=== PATIENT | male | born 1945 | race Caucasian/White ===

== ENCOUNTER 2025-01-09 20:15 | Outpatient (BNV) | payer MEDICARE, SELFPAY | END 2025-01-11 16:57 | PROVIDERS: Admitting Provider Psychiatry & Neurology Psychiatry; PCP Student in an Organized Health Care Education/Training Program; Visit Provider Radiology Diagnostic Radiology | DX: E04.2 Nontoxic multinodular goiter (principal) | CPT/HCPCS: 76536 ==

== ENCOUNTER 2025-01-09 20:15 | Inpatient (IN) | payer MEDICARE, SELFPAY ==
--- NOTE | ~2025-01-09 | US_ITS ---
EXAMINATION: US THYROID HISTORY: Question throat mass, thyroid mass TECHNIQUE: Real-time grayscale ultrasound imaging was performed and images were reviewed. COMPARISON: There are no prior studies available for comparison. FINDINGS: SIZE: The right thyroid lobe measures 4.1 x 1.7 x 1.3 cm. The left thyroid lobe measures 3.7 x 1.3 x 1.3 cm. The isthmus measures 3 mm. FLOW: Flow to the gland is normal. ECHOGENICITY: The echotexture of the gland is homogeneous. NODULES: There are subcentimeter nodules noted on the right as described below: Nodule #: 1 Location: Right lower pole measuring 8 x 5 x 7 mm. Shape: Wider than tall (0 points) Margins: Smooth (0 points) Echotexture: Isoechoic (1 point) Composition: Solid (2 points) Calcifications: None (0 points) Total points: 3 TIRADS: TR3: Mildly suspicious. Nodule #: 2 Location: Right lower pole measuring 4 x 5 x 5 mm. Shape: Wider than tall (0 points) Margins: Smooth (0 points) Echotexture: Isoechoic (1 point) Composition: Solid (2 points) Calcifications: None (0 points) Total points: 3 TIRADS: TR3: Mildly suspicious. US/US thyroid IMPRESSION: Subcentimeter right thyroid nodules as described. According to ACR TI-RADS guidelines, no further follow-up is required. ACR TI-RADS Guidelines TR1 (0 points): Benign. No follow-up or biopsy required TR2 (2 points): Not Suspicious. No biopsy or follow up indicated TR3 (3 points): Mildly Suspicious. FNA if >= 2.5 cm, Follow if >= 1.5 cm TR4 (4-6 points): Moderately Suspicious. FNA if >= 1.5 cm, Follow if >= 1.0 cm TR5 (>=7 points): Highly Suspicious. FNA if >= 1.0 cm, Follow if >= 0.5 cm Electronically signed by: Alan Allen MD 01/14/2025 07:12 AM [facility]
--- OUTSIDE RECORDS SUMMARY | 2025-01-09 20:25 | XMS_ITS | Encounter Summary ---
Author Organization [facility] Address [address] [facility] [address] [place] [address] Care Team Providers Care Exhibit Artist Name Role Phone José Miguel Gutierrez MD Primary Care Provider [phone] José Miguel Gutierrez MD Unavailable Rupert Ram MD Unavailable [phone] Encounter Details Date Type Department Care Team (Late st Contact Info) Description 12/21/2024 External Contact EXT REF LAB [address] [address] Tab Burns MD [address] [place] [address] Social History Tobacco Use Types Packs/Day Years Used Date Smoking Tobacco: Never Smokeless Tobacco: Never Alcohol Use Standard Drinks/Week Comments Not Currently 0 (1 standard drink = 0.6 oz pur e alcohol) Sex and Gender Information Value Date Recorded Sex Assigned at Not on file Legal Sex Male 5:53 AM EST Gender Identity Not on file Sexual Orientation Not on file documented as of this encounter Procedure Notes * Quique Ruiz MD - 12/21/2024 1:06 PM EDT Non-Invasive Vascular Report EMR [address] [address] Date and Time: 12/21/2024 11:04:00 Name: SABA MADRID : 1945 Referring Provider: SEBASTIEN PIZARRO ABA Diagnosis (PE) Vascular Laboratory Report: Left Lower Extremity Venous Duplex Exam Color duplex scanning of the left lower extremity demonstrated that the common femoral vein, femoral vein, proximal deep femoral vein, popliteal vein (proximal and distal), proximal gastrocnemius veins, peroneal veins, great and small saphenous veins, posterior tibial veins were phasic with respiration, fully compressible (where anatomically possible), did not contain imaged thrombus and augmented normally. Left lower extremity mid popliteal vein was non-fully compressible, contained minimal echogenic thrombus remnants, phasic with respiration and augmented normally. IMPRESSION: Chronic, non-occlusive (minimal remnants) deep venous thrombosis in the left lower extremity. No evidence of superficial venous thrombosis in the left lower extremity. No previous exam for comparison. Electronically Signed On 12/21/24 13:13 EDT Krupa Ruiz Electronically Signed On 12/21/24 13:26 EDT SANTIAGO PIZARRO, QUIQUE Lebron Patient Ordering physician: , Other providers: TAB VIZCAINO ABA SOMERS, VINCENT YUAN, , , documented in this encounter Plan of Treatment Upcoming Encounters Date Type Department Care Team (Late st Contact Info) Description 06/03/2025 2:00 PM EDT Office Visit [address] 2[address] [place] [address] Tab Burns MD [address] [place] [address] [address] [place] [address] documented as of this encounter Visit Diagnoses Not on filedocumented in this encounter Care Teams Exhibit Artist Relationship Specialty Start Date End Date José Miguel Gutierrez MD [address] [facility] [address] [place] [address] PCP - General 04/17/21 José Miguel Gutierrez MD [address] [facility] [address] [place] [address] 04/17/21 Rupert Ram MD [address] [place] [address] [address] [place] [address] Gastroenterology 12/17/24 documented as of this encounter
--- OUTSIDE RECORDS SUMMARY | 2025-01-09 20:26 | XMS_ITS | Encounter Summary ---
Author Organization [facility] Address [address] [facility] [address] [place] [address] Phone Care Team Providers Care Insurance Service Representative Name Role Phone Armando Morrow MD Unavailable Chiara Park MD Primary Care Provider [phone] Chiara Park MD Unavailable Noris Calderon MD Primary Care Provider Anh Ramírez Unavailable [email or web address] Radha Samano MA Unavailable [email or web address] Encounter Details Date Type Department Care Team (Late st Contact Info) Description 08/31/2024 Transcribe Orders [facility] [address] [facility] [address] [place] [address] Chiara Park MD [address] [facility] [place] [address] Social History Tobacco Use Types Packs/Day Years Used Date Smoking Tobacco: Never Smokeless Tobacco: Never Alcohol Use Standard Drinks/Week Comments Not Currently 0 (1 standard drink = 0.6 oz pur e alcohol) Etoh, rarely,socially Education Answer Date Recorded Are you interested in more education? Not on tiara e 07/10/2022 Are you concerned about learning? Not on file 07/10/2022 No 07/10/2022 No 07/10/2022 Food Answer Date Recorded Within the past 6 months we worried whether our food would run out before we got money to buy more. Never True 08/21/2024 Within the past 6 months the food we bought just didn't last and we didn't have enough money to get more. Never True Residential Stability Answer Date Recor ded What is your housing situation today? I have malik sing 08/21/2024 How many times have you move d in the past 12 months? Zero (I did not move) 08/21/2024 Paying for Meds Answer Date Recorded Do you have trouble paying for medicines? No 08/21/2024 Paying Utility Bills Answer Date Record ed Do you have trouble paying your heating or elect ricity bill? No 08/21/2024 Transportation Answer Date Recorded Has the lack of transportati on kept you from medical appointments or from getting medications? No 08/21/2024 Digital Access Answer Date Recorded No 08/21/2024 Yes 08/21/2024 Do you have reliable internet access at home? Ye s 08/21/2024 Do you have a device (e.g., phone, tablet, computer) with a working camera? Yes 08/21/2024 Intimate Partner Violence Answer Date R ecorded Are you denied basic needs s uch as food, clothing, or medical care? No 08/21/2024 In the past 12 months have y ou been in a relationship with a person who hurts, threatens, or tries to control you? No 08/21/2024 Are you denied basic needs s uch as food, clothing, or medical care? No 08/21/2024 In the past 12 months have y ou been in a relationship with a person who hurts, threatens, or tries to control you? No 08/21/2024 Sex and Gender Information Value Date Recorded Sex Assigned at Male 09/19/2024 7:37 PM EDT Legal Sex Male 5:50 PM EST Gender Identity Male 09/19/2024 7:37 PM EDT Sexual Orientation Straight 09/19/2024 7: 37 PM EDT documented as of this encounter Plan of Treatment Upcoming Encounters Date Type Department Care Team (Late st Contact Info) Description 01/25/2025 1:30 PM EST Office Visit [facility] [address] [address] Noirs Calderon MD [address] [address] [email or web address] documented as of this encounter Visit Diagnoses Not on filedocumented in this encounter Additional Health Concerns Assessment Noted Time PHQ-9 Depression Total Score: 4 02/22/20 24 12:10 PM EST PHQ-2 Depression Total Score: 1 02/22/20 24 12:10 PM EST documented as of this encounter Care Teams Insurance Service Representative Relationship Specialty Start Date End Date Chiara Park MD [address] [address] PCP - General Internal Medicine 01/09/24 11/22/24 Noris Calderon MD [address] [address] PCP - General Family Medicine 11/23/24 Armando Morrow MD Dermatology 10/03/18 Chiara Park MD [address] [address] Insurance Assigned Provider 06/17/24 Anh Ramírez [address] [place] [address] [email or web address] PHCM Utilization Management Um Nurse 11/30/24 Radha Irving MA [address] [place] [address] PHCM Community Health Worker 11/30/24 12/04/24 documented as of this encounter Additional Source Comments The information contained in this document represents components of the legal health record. It is not the complete legal health record.[facility]
--- OUTSIDE RECORDS SUMMARY | 2025-01-09 20:26 | XMS_ITS | Encounter Summary ---
Author Organization [facility] Address [address] [address] Phone Care Team Providers Care Dehydrogenation Converter Operator Name Role Phone Armando Morrow MD Unavailable Chiara Park MD Primary Care Provider Chiara Park MD Unavailable Noris Calderon MD Primary Care Provider Anh Ramírez Unavailable [email or web address] Radha Samano MA Unavailable [email or web address] Encounter Details Date Type Department Care Team (Late st Contact Info) Description 08/20/2024 Procedure Pass [facility] Emergency Department, [facility] [address] [place] [address] Social History Tobacco Use Types Packs/Day Years [...] your housing situation today? I have malik velasco 08/21/2024 How many times have you move [...] PM EDT documented as of this encounter Functional Status * Calculated C-SSRS Risk Score (Lifetime/Recent) Answer Date of Assessment Author No Risk Indicated 08/21/2024 1:00 AM EDT Belgica Forte, LESTER * [place] Suicide Severity Rating Scale (Screener/Recent Self-Report) Question Answer Date of Assessment Author 1. Wish to be (Past 1 Month) No 08/21/2024 1:00 AM EDT Belgica Forte RN 2. Non-Specific Active Suicidal Thoughts (Past 1 Month) No 08/21/2024 1:00 AM EDT Belgica Forte RN 6. Suicidal Behavior (Lifetime) No 08/21/2024 1:00 AM EDT Belgica Forte RN documented as of this encounter Plan of Treatment Upcoming Encounters Date Type Department Care Team (Late st Contact Info) Description 01/25/2025 1:30 PM EST Office Visit [facility] [address] [address] Noris Calderon MD [address] [address] [email or web address] documented as of this encounter Visit Diagnoses Not on filedocumented in this encounter Additional Health Concerns Assessment Noted Time PHQ-9 Depression Total Score: 4 02/22/20 24 12:10 PM EST PHQ-2 Depression Total Score: 1 02/22/20 24 12:10 PM EST documented as of this encounter Care Teams Dehydrogenation Converter Operator Relationship Specialty Start Date End Date Chiara Park MD [address] [address] [email or web address] PCP - General Internal Medicine 01/09/24 11/22/24 Noris Calderon MD [address] [address] [email or web address] PCP - General Family Medicine 11/23/24 Armando Morrow MD Dermatology 10/03/18 Chiara Park MD [address] [address] [email or web address] Insurance Assigned Provider 06/17/24 Anh Ramírez [address] [place] [address] [email or web address] PHCM Office Coordinator 11/30/24 Radha Irving MA [address] [place] [address] [email or web address] PHCM Community Health Worker 11/30/24 12/04/24 documented as of this encounter Additional Source Comments The information contained in this document represents components of the legal health record. It is not the complete legal health record.[facility]
--- OUTSIDE RECORDS SUMMARY | 2025-01-09 20:26 | XMS_ITS | Encounter Summary ---
Author Organization [facility] Address [address] [address] Phone Care Team Providers Care Assembly Press Operator Name Role Phone José Miguel Gutierrez MD Primary Care Provid [email or web address] José Miguel Gutierrez MD Unavailable [email or web address] Armando Morrow MD Unavailable [phone] José Miguel Gutierrez MD Unavailable [email or web address] M [email or web address] Chiara Park MD Primary Care Provider [phone] Chiara Park MD Unavailable Noris Calderon MD Primary Care Provider [phone] Anh Ramírez Unavailable [email or web address] Radha Samano MA Unavailable [email or web address] Encounter Details Date Type Department Care Team (Late st Contact Info) Description 05/31/2018 Procedure Pass [facility] Imaging - MRI, Main [place] [address] [place], [place] [id number] Social History Tobacco Use Types Packs/Day Years Used Date Smoking Tobacco: Never Smokeless Tobacco: Never Alcohol Use Standard Drinks/Week Comments Not Currently 0 (1 standard drink = 0.6 oz pur e alcohol) Etoh, rarely,socially Sex and Gender Information Value Date Recorded [...] EST Office Visit [facility] [address] [address] Noris Calderon MD [address] [address] [email or web address] documented as of this encounter Visit Diagnoses Not on filedocumented in this encounter Additional Health Concerns Infection Onset Date Last Indicated Resolved Time CoV-Exposed Comment:Recent close contact documented in the COVID-19 PCR/PRO order 11/19/2021 12/01/2021 12/10/2021 1:22 AM E DT CoV-Risk 12/01/2021 12/01/2021 12/12/2021 1:22 AM EDT Assessment Noted Time PHQ-2 Depression Total Score: 0 05/30/19 2:04 PM EDT documented as of this encounter Care Teams Assembly Press Operator Relationship Specialty Start Date End Date José Miguel Gutierrez MD [email or web address] PCP - General 04/06/13 01/08/24 Chiara Park MD [address] [address] [email or web address] PCP - General Internal Medicine 01/09/24 11/22/24 Noris Calderon MD [address] [address] [email or web address] PCP - General Family Medicine 11/23/24 José Miguel Gutierrez MD [email or web address] Insurance Assigned Provider 07/15/18 10/02/18 Armando Morrow MD Dermatology 10/03/18 José Miguel Gutierrez MD [email or web address] Insurance Assigned Provider 06/18/23 06/17/24 Chiara Park MD [address] [place] [phone] Insurance Assigned Provider 06/17/24 Anh Ramírez [address] [place] [address] PHCM Field Artillery Crewmember 11/30/[address] [address] [facility] Community Health Worker 11/30/24 12/04/24 documented as of this encounter Additional Source Comments The information contained in this document represents components of the legal health record. It is not the complete legal health record.[facility]
--- OUTSIDE RECORDS SUMMARY | 2025-01-09 20:26 | XMS_ITS | Encounter Summary ---
Author Organization [facility] Address [address] [address] Phone Care Team Providers Care Unit Manager [employer]ience [employer] Name Role Phone Armando Morrow MD Unavailable [phone] Chiara Park MD Primary Care Provider [phone] Chiara Park MD Unavailable Noris Calderon MD Primary Care Provider Anh Ramírez Unavailable [email or web address] Radha Samano MA Unavailable [email or web address] Encounter Details Date Type Department Care Team (Late st Contact Info) Description 08/09/2024 Procedure Pass [facility]O DEPT [address] [place] [address] Social History Tobacco Use Types Packs/Day Years [...] got money to buy more. Never True 08/09/2024 Within the past 6 months the food we bought just didn't last and we didn't have enough money to get more. Never True Residential Stability Answer Date Recor ded What is your housing situation today? I have malik velasco 08/09/2024 How many times have you move d in the past 12 months? Zero (I did not move) 08/09/2024 Paying for Meds Answer Date Recorded Do you have trouble paying for medicines? No 08/09/2024 Paying Utility Bills Answer Date Record ed Do you have trouble paying your heating or elect ricity bill? No 08/09/2024 Transportation Answer Date Recorded Has the lack of transportati on kept you from medical appointments or from getting medications? No 08/09/2024 Digital Access Answer Date Recorded No 08/09/2024 Yes 08/09/2024 Do you have reliable internet access at home? Ye s 08/09/2024 Do you have a device (e.g., phone, tablet, computer) with a working camera? Yes 08/09/2024 Intimate Partner Violence Answer Date R ecorded Are you denied basic needs s uch as food, clothing, or medical care? No 08/09/2024 In the past 12 months have y ou been in a relationship with a person who hurts, threatens, or tries to control you? No 08/09/2024 Are you denied basic needs s uch as food, clothing, or medical care? No 08/09/2024 In the past 12 months have y ou been in a relationship with a person who hurts, threatens, or tries to control you? No 08/09/2024 Sex and Gender Information Value Date Recorded Sex Assigned at Male 09/19/2024 7:37 PM EDT Legal Sex Male 5:50 PM EST Gender Identity Male 09/19/2024 7:37 PM EDT Sexual Orientation Straight 09/19/2024 7: 37 PM EDT documented as of this encounter Functional Status * Calculated C-SSRS Risk Score (Lifetime/Recent) Answer Date of Assessment Author No Risk Indicated 08/09/2024 5:22 AM EDT Genesis Pond RN * [place] Suicide Severity Rating Scale (Screener/Recent Self-Report) Question Answer Date of Assessment Author 1. Wish to be (Past 1 Month) No 08/09/2024 5:22 AM EDT Genesis Pond RN 2. Non-Specific Active Suicidal Thoughts (Past 1 Month) No 08/09/2024 5:22 AM EDT Genesis Pnod RN 6. Suicidal Behavior (Lifetime) No 08/09/2024 5:22 AM EDT Genesis Pond RN documented as of this encounter Plan of Treatment Upcoming Encounters Date Type Department Care Team (Late st Contact Info) Description 01/25/2025 1:30 PM EST Office Visit [facility] [address] [address] Noris Calderon MD [address] [address] [email or web address] documented as of this encounter Visit Diagnoses Not on filedocumented in this encounter Additional Health Concerns Assessment Noted Time PHQ-9 Depression Total Score: 4 02/22/20 24 12:10 PM EST PHQ-2 Depression Total Score: 1 02/22/20 24 12:10 PM EST documented as of this encounter Care Teams Unit Manager [employer]ience [employer] Relationship Specialty Start Date End Date Chiara Park MD [address] [address] [email or web address] PCP - General Internal Medicine 01/09/24 11/22/24 Noris Calderon MD [address] [address] [email or web address] PCP - General Family Medicine 11/23/24 Armando Morrow MD [email or web address] Dermatology 10/03/18 Chiara Park MD [address] [address] [phone] (work) [email or web address] Insurance Assigned Provider 06/17/24 Anh Ramírez [address] [place] [address] [email or web address] PHCM Rv Body Mechanic 11/30/24 Radha Irving [place] [address] [place] [address] [email or web address] PHCM Community Health Worker 11/30/24 12/04/24 documented as of this encounter Additional Source Comments The information contained in this document represents components of the legal health record. It is not the complete legal health record.[facility]
--- OUTSIDE RECORDS SUMMARY | 2025-01-09 20:26 | XMS_ITS | Clinical Summary ---
Author Organization [facility] ity Address [address] [place] [address] Care Team Providers Care Product Accountant Name Role Phone Unavailable Primary Care Provider Unavailabl e Social History Tobacco Use Types Packs/Day Years Used Date Smoking Tobacco: Never Assessed Sex and Gender Information Value Date Recorded Sex Assigned at Not on file Legal Sex Male 7:02 AM EDT Gender Identity Not on file Sexual Orientation Not on file Plan of Treatment Health Maintenance Due Date Last Done Comments DTaP,Tdap,and Td Vaccines (1 - Tdap) 1963 Pneumococcal Vaccine: 50+ Ye ars (1 of 1 - PCV) 1994 Zoster Vaccines (1 of 2) 1994 RSV Immunization Adult Patie nts (1 - 1-dose 75+ series) 2019 Depression Screening 03/14/2024 COVID-19 Vaccine ( - 2023-2 5 season) 2024 Influenza Vaccine (#1) 2024 HIB Vaccines Aged Out No longer eligi ble based on patient's age to complete this topic HPV Vaccines Aged Out No longer eligi ble based on patient's age to complete this topic Hepatitis A Vaccines Aged Out No long er eligible based on patient's age to complete this topic Hepatitis B Vaccines Aged Out No long er eligible based on patient's age to complete this topic IPV Vaccines Aged Out No longer eligi ble based on patient's age to complete this topic MMR Vaccines Aged Out No longer eligi ble based on patient's age to complete this topic Meningococcal ACWY Vaccine Aged Out N o longer eligible based on patient's age to complete this topic Meningococcal B Vaccine Aged Out No l onger eligible based on patient's age to complete this topic RSV Immunization Patients Un yohan 20 months Aged Out No longer eligible b ased on patient's age to complete this topic Varicella Vaccines Aged Out No longer eligible based on patient's age to complete this topic
--- OUTSIDE RECORDS SUMMARY | 2025-01-09 20:26 | XMS_ITS | Clinical Summary ---
Author Organization [facility] [employer] Address [address] [place] [address] Care Team Providers Care Banker Mason Name Role Phone José Miguel Gutierrez MD Primary Care Provid er Medications No known medications Immunizations Immunization Administration Dates Next Due Moderna Covid-19 Multidose Vial Booster (18+ yea rs) 10/01/2021 Social History Tobacco Use Types Packs/Day Years Used Date Smoking Tobacco: Never Assessed Sex and Gender Information Value Date Recorded Sex Assigned at Not on file Legal Sex Male 3:46 PM EDT Gender Identity Not on file Sexual Orientation Not on file Plan of Treatment Health Maintenance Due Date Last Done Comments Depression: Screening Annual ly using PHQ-2/9 in Adults 18 yrs or above (or HM Modifier)([facility]) 1963 SDOH Screening Reminder: [place] johnson for all adults ([facility]) 1963 Tobacco Smoking Cessation: i n Adults excluding Women: Behavioral and Pharmacotherapy Interventions ([facility]) 1963 Pneumococcal Vaccination Scr eening: Patients 50+ yrs of age ([facility]) (2 of 2 - PCV) 10/08/2017 10/08/2016, 11/25/2010, 01/28/2005 RSV Vaccines (1 - 1-dose 75+ series) 2019 Zoster/Shingles Vaccine Seri es Screening: Adults aged 18+ yrs (or HM Modifiers)([facility]) (2 of 2) 05/26/2021 03/31/2021 DTaP/Tdap/Td Vaccines ([facility]) (2 - Td or Tdap) 06/14/2022 06/14/2012 Flu Vaccination: Ages 65+: Y early High Dose Recommended (or Modifier)([facility]) 10/12/2024 01/02/2019, , 12/14/2016 COVID-19 Vaccine Screening: Initial Series and Booster Status ([facility]) (2024- season) 2024 10/01/2021, 05/21/2020, 04/23/2020 Medical Devices Not on file Insurance MEDICARE Care Teams Banker Mason Relationship Specialty Start Date End Date José Miguel Gutierrez MD [facility] [address] [place] [address] PCP - General Internal Medicine 10/01/21
--- OUTSIDE RECORDS SUMMARY | 2025-01-09 20:26 | XMS_ITS | Encounter Summary ---
Author Organization [facility] Address [address] [facility] [address] [place] [address] Phone Care Team Providers Care Stripper Apprentice Name Role Phone Armando Morrow MD Unavailable [phone] Chiara Park MD Unavailable Noris Calderon MD Primary Care Provider [phone] Anh Ramírez Unavailable [email or web address] Encounter Details Date Type Department Care Team (Late st Contact Info) Description 12/17/2024 Procedure Pass [facility] Imaging - MRI, Main [place] [address] [place] [address] Social History Tobacco Use Types Packs/Day Years Used Date Smoking Tobacco: Never Passive Smoke Exposure: Never Smokeless Tobacco: Never Alcohol Use Standard Drinks/Week Comments Not Currently 0 (1 standard drink = 0.6 oz pur e alcohol) Etoh, rarely,socially Child or Family Care Answer Date Record ed Do you have problems with on e of the following making it difficult for you to work, study, or receive health care? No 11/28/2024 Education Answer Date Recorded Are you interested in more education? Not on tiara e 07/10/2022 Are you concerned about learning? Not on file 07/10/2022 No 07/10/2022 No 07/10/2022 Food Answer Date Recorded Within the past 6 months we worried whether our food would run out before we got money to buy more. Never True 12/14/2024 Within the past 6 months the food we bought just didn't last and we didn't have enough money to get more. Never True Residential Stability Answer Date Recor ded What is your housing situation today? I have malik velasco 12/14/2024 How many times have you move d in the past 12 months? Zero (I did not move) 12/14/2024 Paying for Meds Answer Date Recorded Do you have trouble paying for medicines? No 12/14/2024 Paying Utility Bills Answer Date Record ed Do you have trouble paying your heating or elect ricity bill? No 12/14/2024 Transportation Answer Date Recorded Has the lack of transportati on kept you from medical appointments or from getting medications? No 12/14/2024 Digital Access Answer Date Recorded No 12/14/2024 Yes 12/14/2024 Do you have reliable internet access at home? Ye s 12/14/2024 Do you have a device (e.g., phone, tablet, computer) with a working camera? Yes 12/14/2024 Intimate Partner Violence Answer Date R ecorded Are you denied basic needs s uch as food, clothing, or medical care? No 12/14/2024 In the past 12 months have y ou been in a relationship with a person who hurts, threatens, or tries to control you? No 12/14/2024 Are you denied basic needs s uch as food, clothing, or medical care? No 12/14/2024 In the past 12 months have y ou been in a relationship with a person who hurts, threatens, or tries to control you? No 12/14/2024 Sex and Gender Information Value Date Recorded Sex Assigned at Male 09/19/2024 7:37 PM EDT Legal Sex Male 5:50 PM EST Gender Identity Male 09/19/2024 7:37 PM EDT Sexual Orientation Straight 09/19/2024 7: 37 PM EDT documented as of this encounter Plan of Treatment Upcoming Encounters Date Type Department Care Team ([facility] st Contact Info) Description 01/25/2025 1:30 PM EST Office Visit [facility] [address] [address] Norsi Calderon MD [address] [address] documented as of this encounter Visit Diagnoses Not on filedocumented in this encounter Additional Health Concerns Assessment Noted Time PHQ-9 Depression Total Score: 15 025 2:24 PM EDT PHQ-2 Depression Total Score: 6 11/29/19 25 2:24 PM EDT documented as of this encounter Care Teams Stripper Apprentice Relationship Specialty Start Date End Date Noris Calderon MD 68 [facility] [address] [place] [address] PCP - General Family Medicine 11/23/24 Armando Morrow MD Dermatology 10/03/18 Chiara Park MD [address] [address] Insurance Assigned Provider 06/17/24 Anh Ramírez [address] [place] [email or web address] PHCM Drawer Liner 11/30/24 documented as of this encounter Additional Source Comments The information contained in this document represents components of the legal health record. It is not the complete legal health record.[facility]
--- OUTSIDE RECORDS SUMMARY | 2025-01-09 20:26 | XMS_ITS | Clinical Summary ---
Author Organization [facility] Address [address] [place] [address] Care Team Providers Care Final Application Reviewer Name Role Phone José Miguel Gutierrez MD Primary Care Provider José Miguel Gutierrez MD Unavailable Rupert Ram MD Unavailable [phone] Allergies No known active allergies Medications atorvastatin (Lipitor) 10 mg tablet Take 10 mg by mouth in the morning. Active buPROPion XL (Wellbutrin XL) 300 mg 24 hr tablet Take 300 mg by mouth once daily. Active venlafaxine XR (Effexor-XR) 150 mg 24 hr capsule Take 150 mg by mouth once daily. Active Eliquis 5 mg tablet Take 5 mg by mouth twice daily. Active venlafaxine XR (Effexor-XR) 75 mg 24 hr capsule Take 75 mg by mouth in the morning. Active multivitamin with folic acid 400 mcg tablet tablet Take 1 tablet by mouth once daily. Active amLODIPine (Norvasc) 2.5 mg tablet Take 2.5 mg by mouth in the morning. 5 Active pantoprazole (ProtoNix) 40 mg EC tablet Take 40 mg by mouth in the morning and 40 mg in the evening. 5 01/03/20 25 Discontinu ed(Therapy completed) Encounters Date Type Department Care Team Description 01/02/2025 1:30 PM EDT Office Visit [facility] [address] [place] [address] Tab Burns MD Other acute pulmonary embolism without acute cor pulmonale (Primary Dx) 01/02/2025 Travel 12/26/2024 11:00 AM EDT Office Visit [address] [place] [address] Shirley Wood PA Acute gastric ulcer without hemorrhage or perforation (Primary Dx); Other acute pulmonary embolism, unspecified whether acute cor pulmonale present; Hx of colonic polyp 12/21/2024 [address] [place] [address] Shirley Wood PA 12/21/2024 External Contact [facility]T [facility] [address] [place] [address] Tab Burns MD 11/22/2024 2:30 PM EDT Office Visit [address] [place] [address] Tab Burns MD Other acute pulmonary embolism without acute cor pulmonale (Multi-HCC) (Primary Dx) 11/22/2024 Travel from Last 3 Months Family History Medical History Relation Name Comments Asthma Daughter Asthma Sister Relation Name Status Comments Daughter Alive Sister Social History Tobacco Use Types Packs/Day Years Used Date Smoking Tobacco: Never Smokeless Tobacco: Never Tobacco Cessation:Counseling Given: Not Answered Alcohol Use Standard Drinks/Week Comments Not Currently 0 (1 standard drink = 0.6 oz pur e alcohol) Sex and Gender Information Value Date Recorded Sex Assigned at Not on file Legal Sex Male 5:53 AM EST Gender Identity Not on file Sexual Orientation Not on file Last Filed Vital Signs Vital Sign Reading Time Taken Comments Blood Pressure 124/82 01/02/2025 1:51 PM EDT Pulse 96 01/02/2025 1:51 PM EDT Temperature 36.6 C (97.9 F) 01/02/2025 1:51 PM EDT Respiratory Rate 14 01/02/2025 1:51 PM EDT Oxygen Saturation 99% 01/02/2025 1:51 PM EDT Inhaled Oxygen Concentration - - Weight 72 kg (158 lb 11.7 oz) 01/02/2025 1:51 PM EDT Height 173 cm (5' 8.11 ) 01/02/2025 1:51 PM EDT Body Mass Index 24.06 01/02/2025 1:51 PM EDT Plan of Treatment Upcoming Encounters Date Type Department Care Team (Late st Contact Info) Description 06/03/2025 2:00 PM EDT Office Visit [address] [place] [address] Tab Burns MD [address] [place] [address] [address] [place] [address] Health Maintenance Due Date Last Done Comments Medicare Annual Wellness (AWV) 09/11/1974 Zoster Vaccines (3 of 3) 05/26/2021 03/31/2021, 01/13 DTaP/Tdap/Td Vaccines (2 - Td or Tdap) 06/14/2022 06/14/2012 Depression Screening 03/14/2024 COVID-19 Vaccine (2024- season) 2024 11/23/2023, 01/12/2023, 09/21/2022, Additional history exists Influenza Vaccine (#1) 2024 , 01/05/2022, 11/10/2020, Additional history exists Diabetes Screening 12/15/2025 12/15/2024, 1 , 02/14/2023, Additional history exists Lipid Panel 12/15/2029 12/15/2024, 12/13, 02/14/2023, Additional history exists Pneumococcal Vaccine: 50+ Years Completed 10/08/2016, 10/17/2014, 11/25/2010, Additional history exists Pneumococcal Vaccine: Pediatrics (0 to 5 Years) and At-Risk Patients (6 to 49 Years) Discontinued 10/08/2016, 10/17/2014, 11/25/2010, Additional history exists HIB Vaccines Aged Out No longer eligi [...] patient's age to complete this topic Meningococcal Vaccine Aged Out No tj kim eligible based on patient's age to complete this topic Rotavirus Vaccines Aged Out No longer eligible based on patient's age to complete this topic Insurance MEDICARE PART A AND B [employer] MEDICARE PART A AND B [employer] Care Teams Final Application Reviewer Relationship Specialty Start Date End Date José Miguel Gutierrez MD [address] [facility] [address] [place] [address] PCP - General 04/17/21 José Miguel Gutierrez MD [address] [place] [address] [address] [place] [address] 04/17/21 Rupert Ram MD [address] [place] [address] [address] [place] [address] Gastroenterology 12/17/24
--- OUTSIDE RECORDS SUMMARY | 2025-01-09 20:26 | XMS_ITS | Encounter Summary ---
Author Organization [facility] Address [address] [address] Phone Care Team Providers Care Management Expert Name Role Phone Armando Morrow MD Unavailable Chiara Park MD Primary Care Provider [phone] Chiara Park MD Unavailable Noris Calderon MD Primary Care Provider Anh Ramírez Unavailable [email or web address] Radha Samano MA Unavailable [email or web address] Encounter Details Date Type Department Care Team (Late st Contact Info) Description 08/20/2024 Procedure Pass [facility] Emergency Department, [facility] [address] [place] [address] Social History Tobacco Use Types Packs/Day Years [...] 1:00 AM EDT Belgica Forte, LESTER * Diagonal Suicide Severity Rating Scale (Screener/Recent Self-Report) Question [...] EST Office Visit [facility] [address] [address] Noris Calderon MD [address] [address] [email or web address] documented as of this encounter Visit Diagnoses Not on filedocumented in this encounter Additional Health Concerns Assessment Noted Time PHQ-9 Depression Total Score: 4 02/22/20 24 12:10 PM EST PHQ-2 Depression Total Score: 1 02/22/20 24 12:10 PM EST documented as of this encounter Care Teams Management Expert Relationship Specialty Start Date End Date Chiara Park MD [address] [address] [email or web address] PCP - General Internal Medicine 01/09/24 11/22/24 Noris Calderon MD [address] [address] [email or web address] PCP - General Family Medicine 11/23/24 Armando Morrow MD Dermatology 10/03/18 Chiara Park MD [address] [address] [email or web address] Insurance Assigned Provider 06/17/24 Anh Ramírez [address] [place] [address] [email or web address] PHCM Blast Furnace Helper 11/30/24 Radha Irving MA [address] [place] [address] [email or web address] PHCM Community Health Worker 11/30/24 12/04/24 documented as of this encounter Additional Source Comments The information contained in this document represents components of the legal health record. It is not the complete legal health record.[facility]
--- OUTSIDE RECORDS SUMMARY | 2025-01-09 20:26 | XMS_ITS | Encounter Summary ---
Author Organization [facility] Address [address] [address] Phone Care Team Providers Care Geriatric Nurse Assistant Name Role Phone José Miguel Gutierrez MD Primary Care Provid er [email or web address] José Miguel Gutierrez MD Unavailable [email or web address] Armando Morrow MD Unavailable [phone] José Miguel Gutierrez MD Unavailable [email or web address] Chiara Park MD Primary Care Provider [phone] Chiara Park MD Unavailable Noris Calderon MD Primary Care Provider [phone] Anh Ramírez Unavailable [email or web address] Radha Samano MA Unavailable [email or web address] Encounter Details Date Type Department Care Team (Late st Contact Info) Description 02/16/2016 Procedure Pass [facility]PT [address] [place] [address] [phone] Social History Tobacco Use Types Packs/Day Years Used Date Smoking Tobacco: Never Sex and Gender Information Value Date Recorded [...] EST Office Visit [facility] [address] [id number] Noris Calderon MD [address] [address] [email or web address] documented as of this encounter Visit Diagnoses Not on filedocumented in this encounter Additional Health Concerns Infection Onset Date Last Indicated Resolved Time CoV-Exposed Comment:Recent close contact documented in the COVID-19 PCR/PRO order 11/19/2021 12/01/2021 12/10/2021 1:22 AM E DT CoV-Risk 12/01/2021 12/01/2021 12/12/2021 1:22 AM EDT documented as of this encounter Care Teams Geriatric Nurse Assistant Relationship Specialty Start Date End Date José Miguel Gutierrez MD [email or web address] PCP - General 04/06/13 01/08/24 Chiara Park MD [address] [address] PCP - General Internal Medicine 01/09/24 11/22/24 Noris Calderon MD [address] [address] PCP - General Family Medicine 11/23/24 José Miguel Gutierrez MD [email or web address] Insurance Assigned Provider 07/15/18 10/02/18 Armando Morrow MD Dermatology 10/03/18 José Miguel Gutierrez [email or web address] Insurance Assigned Provider 06/18/23 06/17/24 Chiara Park MD [address] [place] [address] Insurance Assigned Provider 06/17/24 Anh Ramírez [address] [place] [address] [email or web address] PHC Home Designer 11/30/24 Radha Irving [address] [address] [email or web address] PHC Community Health Worker 11/30/24 12/04/24 documented as of this encounter Additional Source Comments The information contained in this document represents components of the legal health record. It is not the complete legal health record.[facility]
--- OUTSIDE RECORDS SUMMARY | 2025-01-09 20:26 | XMS_ITS | Clinical Summary ---
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 venlafaxine (EFFEXOR-XR) 150 MG 24 hr capsule Take 1 capsule (150 mg total) by mouth daily. Dose: 150 MG; Form: Take 1 CAP ER 24H; Route: PO; Frequency: QD; Directions: Not available; Details: Dispense: 30 Capsule(s); Date: 10/17/2014 90 capsule 08/02/19 18 Active b complex vitamins capsule Take 1 capsule by mouth daily. Active atorvastatin (LIPITOR) 10 MG tabletIndicat ions:Hyperlip idemia Take 1 tablet (10 mg total) by mouth daily. 90 tablet 3 12/06/19 25 Active venlafaxine (EFFEXOR-XR) 75 MG 24 hr capsule Take 75 mg by mouth daily. (In addition to 150 mg capsule for a total dose of 225 mg) Active ketoconazole 2 % cream Apply 1 Application topically nightly at bedtime. To forehead and feet Active ELIQUIS 5 mg tablet TAKE 1 TABLET BY MOUTH TWICE A DAY 60 tablet 1 12/18/19 Active amLODIPine (NORVASC) 2.5 MG tablet Take 1 tablet (2.5 mg total) by mouth daily. 30 tablet 12/21/19 Active multivitamin with folic acid 400 mcg tablet Take 1 tablet by mouth daily. Active efinaconazole (JUBLIA) 10 % SolAIndicatio ns:Onychomyco sis Apply 1 each topically daily. APPLY 1 EACH TOPICALLY DAILY. APPLY TO AFFECTED TOENAIL(S) ONCE DAILY FOR 48 WEEKS ENSURE COMPLETE COVERAGE OF THE TOENAIL, THE TOENAIL FOLDS, TOENAIL BED, SURROUNDING SKIN, AND THE UNDERSURFACE OF THE TOENAIL PLATE for 48 weeks. 8 mL 12 12/28/19 25 026 Active buPROPion (WELLBUTRIN XL) 300 MG ER 24 hr tablet Take 300 mg by mouth. Active donepeziL (ARICEPT) 5 MG tablet Take 1 tablet (5 mg total) by mouth nightly at bedtime. 90 tablet 3 01/04/20 Active buPROPion (WELLBUTRIN XL) 150 MG ER 24 hr tablet Take 300 mg by mouth daily. 025 Discontinued(D uplicate order) ELIQUIS 5 mg tablet TAKE 1 TABLET BY MOUTH TWICE A DAY 60 tablet 1 10/17/19 25 025 Discontinued pantoprazole (PROTONIX) 40 MG tablet Take 1 tablet (40 mg total) by mouth 2 (two) times a day. 180 tablet 11/06/19 25 025 Discontinued(N o longer taking) efinaconazole 10 % SolAIndicatio ns:Onychomyco sis Apply 1 each topically daily. Apply to affected toenail(s) once daily for 48 weeks; ensure complete coverage of the toenail, the toenail folds, toenail bed, surrounding skin, and the undersurface of the toenail plate 8 mL 3 12/27/19 25 025 Discontinued Active Problems Patient Care Coordination No te Formatting of this note migh t be different from the original. Pt enrolled to Integrated Care Management Program on 12/16/24 and is followed by Anh Ramírez, Cellular Biologist. Risk Factors/Barriers: Severe depression, hx of PE, CKD3am HLD, OA, ADD, MDD, depressive DO Living Arrangements/Home Environment: Lives alone in co-owned home (bought 20 yrs ago w/ who is now from Pt) Functional Status (ADLs/iADLs): Pt reports independence with ADL's and IADL's Community Supports: Laurel Rodrigez [facility] on 12/25/24 -- in person Family/Social Supports: Pt denies having family support explaining that his was his primary support prior to her leaving him three months ago. Has a 27 yo dtr, but Pt denies any other family supports. The patient also denies that he has many social supports explaining that many of his friends have already . Other Specialty Providers: [facility] and has been seeing them regularly since this incident Dr. Jaime w/ [facility] manages his meds Medication Management: Pt manages his own medications Transportation: Still driving and able to get to and from medical appts Communication Needs (language, visual, hearing impairment): Denies concerns Advanced Care Planning (HCP/MOLST): Per EMR, the patient does not have a Health Care Proxy on file. If not completed while the patient is [psychiatrically admitted, the plan will be for [facility] providers to follow up once the patient has acclimated back to the community. Hospitalizations/Care Transitions: 12/13 - 12/20/24: [facility] for Depression/SI > Home w/ referral to PHP Problem Noted Date Diagnosed Date Change of voice 12/27/2024 Assessment & Plan (12/27/2024 8:29 AM EDT): Pt endorses intermittent episode of voice catching while speaking, recovers fine immediately No other symptoms; denies choking, trouble swallowing, coughing, hoarseness, pain Does not smoke Visible oropharyngeal exam unremarkable - Differential broad, could be spasmodic dysphonia, laryngopharyngeal reflux, vocal cord lesion, early Parkinson's - Patient scheduled with neurology on 01/03/25 due to inpatient MoCA of (decreased from in 2019), pt interested in discussing this with specialist. Given full picture of pt's clinical presentation (tremor, some rigidity, cognitive decline), there is some concern for possible Parkinson's disease. However, other aspects, such as pill-rolling tremor in particular and shuffling gait are absent during this and prior evaluations. May consider OT evaluation. - Can also consider referral to ENT for laryngoscopy. 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 to schedule an appt Stage 3a chronic kidney disease 12/11/2024 Urge incontinence of urine 12/11/2024 Assessment & Plan (12/11/2024 1:01 PM EDT): Expresses strong urge to urinate with subsequent incontinence if he does not immediately get to a bathroom Getting up during the night 3 times to urinate No other abnormal urinary symptoms - Discussed restricting fluid intake 1-2hrs before bedtime - Consider Trial flomax - Prostate exam at follow up Grief 11/29/2024 Assessment & Plan (11/29/2024 8:37 AM EDT): Describes severe depression and grief since left approx 3mo ago Describes recent onset of sudden crying spells Endorsed suicidal ideation on PHQ9 questionnaire. States he is still sleeping and eating well. - SI was discussed further; pt expressed hx same, states these thoughts are chronic. Reports no intent, stating I wouldn't do that and that he is interested in continuing therapy and moving forward with his life as he wants nothing to do with her [his ] anymore. Has been making appointments with providers. - Encouraged to take increased bupropion dose as advised by [facility] provider via phone a few days ago (per his report). Will increase from ER 150mg qd to 300mg qd. - Pt spoke extensively regarding chakras as this is something very meaningful to him. Practiced several breathing exercises, particularly during one of the several crying spells during the visit with a good response and calming effect. - Attempted to secure wellness call/check with [facility] as pt is already established; however, they do not provide this service. Unsuccessful call to [facility] with no response after 2 calls. Urgent referral placed to [facility] [place] additional community resources. Will personally call patient to complete wellness check in. - Follow up in 1 week. Passive suicidal ideations 11/29/2024 Assessment & Plan (11/29/2024 8:42 AM EDT): Endorsed SI on PHQ9 Further history revealed thoughts that are passive in nature without intent or plan. See problem grief for full details Gastric ulcer 08/29/2024 Assessment & Plan (08/29/2024 8:09 PM EDT): Continue pantoprazole Anger 08/20/2024 Chronic kidney disease 08/20/2024 Pulmonary embolism on right 08/20/2024 Assessment & Plan (08/29/2024 1:15 PM EDT): On Eliquis. Provoked from recent hospitalization. Breathing comfortably without any distress for 15 minute conversation. Plan: - Eliquis 5 mg bid - 11/19/2024 at least. - pulm referral. Essential hypertension 08/20/2024 Assessment & Plan (12/27/2024 8:12 AM EDT): Current regimen: amlodipine 2.5mg qd Started during psychiatric admission BP 144/82 - Continue current regimen Symptomatic anemia 08/09/2024 Assessment & Plan (08/09/2024 1:49 PM EDT): Pt presents with 2 episodes of hematemesis 10 days ago and associated lightheadedness, dyspnea, and fatigue. Upon arrival to the ED, he is hemodynamically stable. Hgb 7.3 (priors ~13), Hct 22.9 (priors ~40). He is s/p 2 unit prbc's with improvement in H/H 9.1/28.0. He denies evidence of ongoing bleeding. Given concern for upper GIB, will discuss with GI. - GI consult, appreciate recs - Plan for EGD this afternoon; pt is NPO - IV Protonix 40 mg BID - Maintain 2 large bore IV's - Active type and screen - Trend CBC History of GI bleed 08/01/2024 Assessment & Plan (12/26/2024 4:28 PM EDT): >>ASSESSMENT AND PLAN FOR GASTROINTESTINAL HEMORRHAGE WRITTEN ON 08/01/2024 10:38 AM BY CHIARA CAMPUZANO MD - Fell out of bed. - Threw up blood twice on Tuesday night. - No abdominal pain experienced. - No changes in bowel movements. - Experienced dizziness or lightheadedness. - No headaches or vision changes since the fall. - No weakness or numbness in limbs since the fall. - No changes in balance or coordination since the fall. - No chest pain or shortness of breath since the fall. - No fever or chills since the fall. Plan: - GI referral - CBC, CMP INR - repeat CBC in a week. - if bleeding recur, patient agreed to visit ER immediately. Seborrheic dermatitis 04/05/2024 Assessment & Plan (04/05/2024 1:48 PM EST): - Patient presents with skin redness and peeling on both sides of the face. - Symptoms have been ongoing for several weeks. - No itching or burning sensation associated with the redness and peeling. - No recent changes in skincare products or routines. - Patient has tried lotion and aloe vera. - No changes in diet or new food allergies reported. - Patient has experienced some stress and meditates to help with it. - No new stressors or changes in environment recently. - Patient has noticed changes in skin's condition after sun exposure. - Patient also has a persistent red/brown patch on the chest. - Red/brown patch on chest has been consistent with no changes in size or color. - Patient is unsure but does not think there are any new spots or rashes elsewhere on the body. - No changes in texture or sensitivity of facial skin noted. - Patient reports no new symptoms of swelling or warmth in the affected areas. - Patient has not experienced recent sun exposure or sunburns. Plan: - Nizoral shampoo 2% Seborrheic keratosis 04/05/2024 Assessment & Plan (04/05/2024 1:51 PM EST): Above left nipple Plan: - Bx in 04/2024 Sarcopenia 02/22/2024 Assessment & Plan (02/22/2024 12:26 PM EST): Low muscle volume grossly, report regular weight training though Plan: - KATHERINE in 03/2024 Medication-induced postural tremor 05/27/2023 Aortic atherosclerosis 02/25/2023 Erectile dysfunction 12/10/2022 Adrenal nodule 08/03/2022 Assessment & Plan (02/22/2024 12:25 PM EST): 02/2023 hormonal activity neg 02/2023 CT: adrenal adenoma Plan; - repeat CT in 02/2026 Constipation 10/03/2017 Prediabetes 10/03/2017 Assessment & Plan (02/22/2024 12:24 PM EST): Lab Results Component Value Date GHBA1C 5.8 (H) 01/10/2024 GHBA1C 6.1 (H) 02/14/2023 GHBA1C 5.6 08/16/2022 GHBA1C 6.0 (Abnormally H) 09/01/2021 GHBA1C 6.0 (Abnormally H) 11/10/2020 GHBA1C 5.9 (Abnormally H) 07/01/2020 GHBA1C 5.6 10/09/2019 GHBA1C 6.0 (Abnormally H) 01/24/2019 GHBA1C 5.9 (Abnormally H) 10/04/2018 GHBA1C 5.9 (Abnormally H) 05/29/2018 Plan: - A1c in 05/2024 Assessment & Plan (01/10/2024 12:48 PM EDT): Lab Results Component Value Date GHBA1C 6.1 (H) 02/14/2023 GHBA1C 5.6 08/16/2022 GHBA1C 6.0 (Abnormally H) 09/01/2021 GHBA1C 6.0 (Abnormally H) 11/10/2020 GHBA1C 5.9 (Abnormally H) 07/01/2020 GHBA1C 5.6 10/09/2019 GHBA1C 6.0 (Abnormally H) 01/24/2019 GHBA1C 5.9 (Abnormally H) 10/04/2018 GHBA1C 5.9 (Abnormally H) 05/29/2018 GHBA1C 6.0 (Abnormally H) 10/03/2017 Plan: - A1c today Osteoarthritis 10/08/2016 Helicobacter pylori infection 10/07/2016 ADD (attention deficit disorder) 09/06/2014 Overview (02/18/2015): Attention deficit disorder Allergy 11/24/2010 Overview (05/03/2018): Allergy 2019R1.3 IMO Load Severe depression 11/24/2010 Assessment & Plan (12/27/2024 8:27 AM EDT): Current regimen: effexor 225mg qd, wellbutrin 300mg qd Admitted 12/13-12/20/24 for SI, voluntary Doing well since then, reports he enjoyed the structure Tolerating regimen well - Daily intensive outpatient program starting tomorrow 12/27/24, which he is looking forward to - Continue following with [facility] psychiatry - Continue with [facility] for therapy Assessment & Plan (12/11/2024 12:55 PM EDT): Current regimen: effexor 225mg qd, wellbutrin 300mg qd Started increased doses around Thurs/Fri 11/29- Psychotherapy appt tomorrow evening; sessions have been increased to twice a week Less frequent crying spells - Encouraged to continue attending psychotherapy sessions - Continue current regimen as prescribed - Follow up in 2 weeks Assessment & Plan (08/09/2024 1:49 PM EDT): Continue home Bupropion and Venlafaxine Diverticulosis 11/24/2010 Overview (10/07/2016): Diverticulosis Hyperplastic polyp of intestine 11/24/2010 Overview (10/07/2016): Hyperplastic polyp of intestine Vitamin D deficiency 11/24/2010 Overview (10/07/2016): Vitamin D deficiency Hyperlipidemia 11/17/2010 Overview (10/07/2016): Hyperlipidemia Assessment & Plan (08/09/2024 1:49 PM EDT): Continue home Lipitor Assessment & Plan (01/10/2024 12:48 PM EDT): This SmartLink has been updated to reference the ASCVD 2013 equation and not the 2018 equations. The 10-year ASCVD risk score (Cindy OTTO, et al., 2019) is: 40.6% Values used to calculate the score: Age: 78 years Sex: Male Is Non- : No Diabetic: No Tobacco smoker: No Systolic Blood Pressure: 158 mmHg Is BP treated: No HDL Cholesterol: 46 mg/dL Total Cholesterol: 155 mg/dL Lab Results Component Value Date LDLCAL 68 02/14/2023 LDLCAL 73 08/16/2022 LDLCAL 65 09/01/2021 LDLCAL 54 11/10/2020 Plan: - repeat lipid panel today Sleep apnea 03/28/2009 Overview (10/07/2016): Sleep apnea Assessment & Plan (08/09/2024 1:49 PM EDT): - CPAP, appreciate RT Spinal stenosis 03/28/2009 Overview (10/07/2016): Spinal stenosis Resolved Problems Problem Noted Date Diagnosed Date Resolved Date Depressive disorder 12/14/2024 12/27/19 25 Upper abdominal pain 08/20/2024 025 Serum lipase elevation 08/20/202412/26 Bruising 01/10/2024 12/26/2024 Assessment & Plan (02/22/2024 12:24 PM EST): resolved Assessment & Plan (01/10/2024 12:47 PM EDT): Onset: 3-4 days ago Left arm Denies injury history 5-6 cm Plan: - CBC, LFT, INR - reval in 2 weeks Encounters * This document contains information received from the source organization and may not represent a complete record from that organization. Date Type Department Care Team Description 01/03/2025 2:40 PM EDT Office Visit [facility] [address] [facility] [address], [address] [place] [address] Skylar Epps MD, MBBS Mild cognitive impairment (Primary Dx) 12/26/2024 2:00 PM EDT Office Visit [address] [phone] Noris Calderon MD Onychomycosis (Primary Dx); Actinic keratosis of right cheek; Severe depression; Essential hypertension; Change of voice 12/26/[address] [address] Noris Calderon MD Med Change Request 12/25/2024 Patient Outreach [address] [phone] Radha Irving MA Care Coordination (CHW outreach - finances, housing) 12/25/2024 Patient Outreach [address] [address] Anh Ramírez iCMP Care Plan Update (ICPM ICMP Plan of Care pulled forward manually -d/t MGB / EPIC Update) 12/24/[address] [phone] Carole Brenner MA Post Discharge Follow Up Call (Completed ) 12/24/2024 Patient Outreach [address] [phone] Anh Ramírez Post Discharge Follow Up Call (Completed ) 12/21/2024 Patient Outreach [address] [phone] Henrietta Fong Post Discharge Follow Up Call (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 Primary [address] [address] 12/17/2024 Procedure Pass [facility] - MRI, [address] [place] [place] [address] 12/16/2024 Patient Outreach [address] [phone] Anh Ramírez Program Enrollment ([facility]) 12/16/2024 Refill [facility] [address] [address] Chiara Campuzano MD Medication Refill 12/14/2024 Patient Outreach [address] [address] Anh Ramírez Post Discharge Follow Up Call 12/10/[address] [facility] Primary [address] [phone] 12/05/2024 1:00 PM EDT Office Visit [facility] [address] [place] [address] Noris Calderon MD Medicare annual wellness visit, initial (Primary Dx); Hyperlipidemia; Screening for prostate cancer; Stage 3a chronic kidney disease; Severe depression; Urge incontinence of urine 12/04/2024 Patient Outreach [address] [phone] Anh Ramírez [facility] 12/03/2024 Telephone [facility] [address] [place] [address] Noris Calderon MD Missed call 11/29/2024 Telephone [facility] [address] [place] [phone] Noris Calderon MD 11/28/2024 1:00 PM EDT Office Visit [facility] [address] [place] [phone] Noris Calderon MD Grief (Primary Dx); Severe depression; Passive suicidal ideations 11/05/2024 Orders Only Office of Dr. Jesus Campuzano [address] [phone] Chiara Campuzano MD 10/18/[address] Jesus Campuzano [address] [phone] Jairo Haas MA 10/16/[address] Jesus Campuzano [address] [phone] Cris Rodriguez Medication Refill 10/16/2024 Refill [facility] [address] [facility] [address] [place] [address] Chiara Campuzano MD Medication Refill from Last 3 Months Immunizations Immunization Administration Dates Next Due COVID-19 (Pre-01/03) Moderna Vaccine, mRNA, PF 05/21/2020,04/23/2020 INFLUENZA, SPLIT VIRUS, TRIVALENT PF 12/13/2011 INFLUENZA, SPLIT VIRUS, TRIV ALENT W/ PRESERVATIVE IM 12/30/2015,10/17/2014,01/21/2014,12/11 Influenza High-Dose Quadriva lent Preservative Free IM 01/05/2022,11/10/2020,01/02/2020 Influenza High-Dose Trivalen t Preservative Free IM 12/20/2024(Deferred: Contraindication),12/06/2023, 9,11/28/2017,12/14/2016 Influenza, Unspecified Formulation 11/17,01/01/2010,12/19/2008,01/03 Pneumococcal conjugate PCV13 10/17/2014 Pneumococcal polysaccharide PPSV23 10/08/2016,,01/28/2005 RSV Vaccine (monovalent, adjuvanted) 02/22/2023 Tdap 06/14/2012 Zoster live 02/04/2009 Zoster recombinant 03/31/2021 Family History Medical History Relation Comments Melanoma Father Malignant melano ma Uncoded Family History Father Age relat ed macular degeneration; Legally blind while living. Was only seeing out of one eye. Coronary artery disease Mother Coronary Artery Disease Diabetes Mother Diabetes Mellitu s Uncoded Family History Mother Age relat ed macular degeneration; Legally blind while living. Was diagnosed in late 80's Relation Status Comments Father (Age 103) Father, age 103, skin cancer (melanoma on back). Mother (Age 93) Mother, a ge 93, [place] at age 87?, dementia, DM, CAD. Social History Tobacco Use Types Packs/Day Years Used Date Smoking Tobacco: Never Passive Smoke Exposure: Never Smokeless Tobacco: Never Tobacco Cessation:Counseling Given: [...] Orientation Straight 09/19/2024 7: 37 PM EDT Last Filed Vital Signs Vital Sign Reading Time Taken Comments Blood Pressure 144/82 12/26/2024 2:15 PM EDT Pulse 100 12/26/2024 2:15 PM EDT Temperature 36 C (96.8 F) 12/20/2024 8:43 AM EDT Respiratory Rate 17 12/19/2024 9:27 PM EDT Oxygen Saturation 99% 12/26/2024 2:15 PM EDT Inhaled Oxygen Concentration 21% 12/15/2024 9 :49 PM EDT Weight 75.8 kg (167 lb) 12/26/2024 2:15 PM EDT Height 172.7 cm (5' 7.99 ) 12/26/2024 2:15 PM ED T Body Mass Index 25.4 12/26/2024 2:15 PM EDT Plan of Treatment Upcoming Encounters Date Type Department Care Team (Late st Contact Info) Description 01/25/2025 1:30 PM EST Office Visit [facility] [address] [phone] Noris Calderon MD [address] [phone] [email or web address] Health Maintenance Due Date Last Done Comments ZOSTER VACCINES (3 of 3) 05/26/2021 03/31/2021, 01/13 Adult Td,Tdap Booster 06/14/2022 06/14/2012 INFLUENZA VACCINE (#1) 2024 , 01/05/2022, 01/05/2022, Additional history exists COVID-19 VACCINE (2024- season) 2024 11/23/2023, 01/12/2023, 09/21/2022, Additional history exists REPEAT PHQ 12/28/2024 11/28/2024, 11/28/2024 BLOOD PRESSURE 06/26/2025 12/26/2024 DEPRESSION SCREENING 11/28/2025 11/28/2024, 11/29/19 CREATININE LEVEL 12/13/2025 12/13/2024, 01/2025, 08/21/2024, Additional history exists LIPID PANEL 12/15/2025 12/15/2024, 12/13, 02/14/2023, Additional history exists PNEUMOCOCCAL VACCINES (50+ years) Completed 10/08/2016, 10/17/2014, 11/25/2010, Additional history exists RSV VACCINE Completed 02/22/2023 SMOKING STATUS SCREENING (Once After 26 Yrs) Completed 12/26/2024 HEPATITIS A VACCINES Aged Out No long er eligible based on patient's age to complete this topic HIB VACCINES Aged Out No longer eligi ble based on patient's age to complete this topic MENINGOCOCCAL VACCINES (ACWY) Aged Out No longer eligible based on patient's age to complete this topic MENINGOCOCCAL VACCINES (B) Aged Out N o longer eligible based on patient's age to complete this topic Medical Devices Not on file Procedures Procedure Name Priority Date/Time Associated Diagnosis Comments MRI BRAIN WITHOUT CONTRAST Routine 12/18/2024 8:43 AM EDT HEMOGLOBIN A1C Routine 12/15/2024 8:10 AM EDT LIPID PANEL Routine 12/15/2024 8:10 AM EDT TSH WITH REFLEX Routine 12/15/2024 8:10 AM EDT GLUCOSE Routine 12/15/2024 8:10 AM EDT TOXICOLOGY SCREEN, URINE STAT 12/13/2024 10:21 PM EDT ETHANOL, BLOOD STAT 12/13/2024 7:06 PM EDT LFTS (HEPATIC PANEL) STAT 12/13/2024 7:06 PM EDT BASIC METABOLIC PANEL STAT 12/13/2024 7:06 PM EDT CBC AND DIFFERENTIAL STAT 12/13/2024 7:06 PM EDT PSA (SCREENING) Routine 12/05/2024 3:01 PM EDT Screening for prostate cancer from Last 3 Months Results * MRI BRAIN WITHOUT CONTRAST (12/18/2024 8:43 AM EDT) Anatomical Region Laterality Modality Head Magnetic Resonan ce 12/18/2024 8:46 AM EDT Impressions 12/18/2024 8:48 AM EDT 1. Mild diffuse parenchymal volume loss without a clear geographic predilection to suggest a specific neurodegenerative process. 2. Areas of white matter signal abnormality are a non-specific finding but may represent the sequela of chronic microangiopathy. 3. Few scattered microhemorrhages involving the right basal ganglia and right cerebellar hemisphere, unchanged. Narrative 12/18/2024 8:48 AM EDT MRI BRAIN WITHOUT CONTRAST Referring clinician's provided indication for this examination in Epic: * Memory Loss TECHNIQUE: MRI BRAIN WITHOUT CONTRAST Multi-sequence, multi-planar MRI of the brain was performed without intravenous contrast. COMPARISON: MRI BRAIN WITHOUT CONTRAST FINDINGS: MRI BRAIN: Brain Parenchyma: There is no mass-effect, midline shift, or space-occupying lesion. There is no decreased diffusion to indicate an acute infarct. There are multiple foci of T2/FLAIR hyperintensity in the periventricular, deep and subcortical white matter, a non-specific finding but likely reflecting the sequela of chronic small vessel disease. Few scattered microhemorrhages involving the right basal ganglia and right cerebellar hemisphere, unchanged. Ventricular System and Extra-Axial Spaces: There is mild diffuse parenchymal volume loss without a clear geographic predilection. Extracranial Structures: The visualized paranasal sinuses appear clear. The mastoid air cells appear clear. Unchanged probable right parotid cysts. Procedure Note Milton Chambers MD - 12/18/2024 MRI BRAIN WITHOUT CONTRAST Referring clinician's provided indication for this examination in Epic: *Memory Loss TECHNIQUE: MRI BRAIN WITHOUT CONTRAST Multi-sequence, multi-planar MRI of the brain was performed withoutintravenous contrast. COMPARISON: MRI BRAIN WITHOUT CONTRAST FINDINGS: MRI BRAIN: Brain Parenchyma: There is no mass-effect, midline shift, orspace-occupying lesion. There is no decreased diffusion to indicate anacute infarct. There are multiple foci of T2/FLAIR hyperintensity in the periventricular,deep and subcortical white matter, a non-specific finding but likelyreflecting the sequela of chronic small vessel disease. Few scattered microhemorrhages involving the right basal ganglia and rightcerebellar hemisphere, unchanged. Ventricular System and Extra-Axial Spaces: There is mild diffuseparenchymal volume loss without a clear geographic predilection. Extracranial Structures: The visualized paranasal sinuses appear clear.The mastoid air cells appear clear. Unchanged probable right parotidcysts. IMPRESSION: 1. Mild diffuse parenchymal volume loss without a clear geographicpredilection to suggest a specific neurodegenerative process. 2. Areas of white matter signal abnormality are a non-specific findingbut may represent the sequela of chronic microangiopathy. 3. Few scattered microhemorrhages involving the right basal ganglia andright cerebellar hemisphere, unchanged. us Rafaela Dalal MD IMG MR HEAD/NECK Final Result * TSH with reflex (12/15/2024 8:10 AM EDT) SCREENING PANEL: TSH 1.27 0.55 - 4.78 uIU/mL [facility] Blood 12/15/2024 8:10 AM EDT 12/15/2024 8:43 AM EDT us Hu Foster MD, [place] LAB BLOOD ORDERABLES Fin al Result [facility] [address] [place] [address] * (ABNORMAL) Hemoglobin A1c (12/15/2024 8:10 AM EDT) HEMOGLOBIN A1C 6.0(H) 4.3 - 5.6 % [facility] Comment: Normal 4.3-5.6% Prediabetes 5.7-6.4% Diagnostic for diabetes >6.5% CALC MEAN BLD GLUC 126 mg/dL [facility] Blood 12/15/2024 8:10 AM EDT 12/15/2024 8:43 AM EDT us Hu Foster MD, [place] LAB BLOOD ORDERABLES Fin al Result Performing Organization Address [facility] de Phone Number [facility] [address] [place] [address] * Glucose (12/15/2024 8:10 AM EDT) GLUCOSE 104 74 - 106 mg/dL [facility] Blood 12/15/2024 8:10 AM EDT 12/15/2024 8:43 AM EDT us Hu Foster MD, [place] LAB BLOOD ORDERABLES Fin al Result Performing Organization Address [facility] Phone Number [facility] [address] [place] [address] * Lipid panel (12/15/2024 8:10 AM EDT) CHOLESTEROL 140 140 - 200 mg/dL [facility] Comment: Desirable: <200 Borderline: 200-239 High: >239 TRIGLYCERIDES 76 0 - 149 mg/dL [facility] Comment: Normal <150 mg/dL Border-High 150-199 mg/dL High Triglycerides 200-499 mg/dL Very High Triglycerides >=500 mg/dL HDL 63 >40 mg/dL [facility] Comment: Recommendations according to the National Cholesterol Education Program Guidelines: <40 mg/dL: Low (Major risk factor for CHD) >= 60 mg/dL: High (Negative risk factor for CHD) CALCULATED LDL 62 0 - 129 mg/dL [facility] NON-HDL CHOLESTEROL 77 mg/dL [facility] CARDIAC RISK RATIO 2.2 0 - 5 N [facility] Blood 12/15/2024 8:10 AM EDT 12/15/2024 8:43 AM EDT us Hu Foster MD, [place] LAB BLOOD ORDERABLES Fin al Result Performing Organization Address City/State/[facility] Co de Phone Number [facility] [address] [place] [address] * Toxicology screen, urine (12/13/2024 10:21 PM EDT) URINE BENZODIAZEPINE Negative Negative [facility] Comment: CUT OFF VALUE FOR POSITIVE RESULTS: 200 NG/ML Unconfirmed results, FOR MEDICAL SCREENING PURPOSES ONLY. URINE COCAINE METAB Negative Negative [facility] Comment: Cut off value for positive results: 300 ng/mL Unconfirmed results, FOR MEDICAL SCREENING PURPOSES ONLY. URINE AMPHETAMINES Negative Negative [facility] Comment: CUT OFF VALUE FOR POSITIVE RESULTS: 1000 NG/ML Unconfirmed results, FOR MEDICAL SCREENING PURPOSES ONLY. URINE CANNABINOIDS Negative Negative [facility] Comment: CUT OFF VALUE FOR POSITIVE RESULTS: 50 NG/ML Unconfirmed results, FOR MEDICAL SCREENING PURPOSES ONLY. URINE OPIATES Negative Negative [facility] Comment: Cut off value for positive results: 300 ng/mL Unconfirmed results, FOR MEDICAL SCREENING PURPOSES ONLY. URINE BARBITURATES Negative Negative [facility] Comment: CUT OFF VALUE FOR POSITIVE RESULTS: 200 NG/ML Unconfirmed results, FOR MEDICAL SCREENING PURPOSES ONLY. URINE OXYCODONE Negative Negative [facility] Comment: CUT OFF VALUE FOR POSITIVE RESULTS: 100 NG/ML Unconfirmed results, FOR MEDICAL SCREENING PURPOSES ONLY. UR TRICYCLICS Negative Negative [facility] Comment: Cut off value for positive results: 300 ng/mL Unconfirmed results, FOR MEDICAL SCREENING PURPOSES ONLY. URINE METHADONE Negative Negative [facility] Comment: Cut off value for positive results: 300 ng/mL Unconfirmed results, FOR MEDICAL SCREENING PURPOSES ONLY. URINE BUPRENORPHINE Negative Negative [facility] Comment: Cut-off concentration for Urine Buprenorphine is 5 ng/mL. Unconfirmed results, FOR MEDICAL SCREENING PURPOSES ONLY. Fentanyl, urine Negative Negative [facility] Comment: Cut-off concentration for Urine Fentanyl is 2 ng/mL. Unconfirmed results, FOR MEDICAL SCREENING PURPOSES ONLY. Urine (Urine) 12/13/2024 10: 21 PM EDT 12/13/2024 10:25 PM EDT Kayley Meier MD, MS URINE ORDERABLES Final Re sult [facility] [address] [place] [address] * Ethanol, blood (12/13/2024 7:06 PM EDT) ETHANOL <10 <10 mg/dL [facility] Blood 12/13/2024 7:06 PM EDT 12/13/2024 7:21 PM EDT Kayley Meier MD, MS LAB BLOOD ORDERABLES Shawna l Result Performing Organization Address [facility]/ZIP Co de Phone Number [facility] [address] [place] [address] * LFTs (hepatic panel) (12/13/2024 7:06 PM EDT) ALBUMIN 4.1 3.5 - 4.8 g/dL [facility] TOTAL BILIRUBIN 0.2 0.0 - 1.0 mg/dL [facility] DIRECT BILIRUBIN <0.2 0 - 0.4 mg/dL [facility] ALKALINE PHOSPHATASE 84 27 - 129 U/L [facility] AST 25 6 - 40 U/L [facility] ALT 17 10 - 49 U/L [facility] TOTAL PROTEIN 7.0 5.7 - 8.2 g/dL [facility] GLOBULIN 2.9 1.9 - 4.1 g/dL [facility] Blood 12/13/2024 7:06 PM EDT 12/13/2024 7:21 PM EDT us Kayley Meier MD, MS LAB BLOOD ORDERABLES Shawna neil Result [facility] [address] [place] [address] * (ABNORMAL) CBC and differential (12/13/2024 7:06 PM EDT) WBC 8.02 4.00 - 11.00 K/uL [facility] RBC 4.63 4.50 - 5.90 M/uL [facility] HGB 11.7(L) 13.5 - 17.5 g/dL [facility] HCT 38.1(L) 41.0 - 53.0 % [facility] PLT 242 150 - 450 K/uL [facility] MCV 82.3 80.0 - 100.0 fL [facility] MCH 25.3(L) 27.0 - 31.0 pg [facility] MCHC 30.7(L) 32.0 - 36.0 g/dL [facility] RDW 17.4(H) 11.5 - 14.5 % [facility] MPV 10.3 8.4 - 12.0 fL [facility] NRBC 0.00 0.00 /100 WBCs [facility] DIFF METHOD Auto [facility] NEUTS 64.4 48.0 - 76.0 % [facility] LYMPHS 25.9 18.0 - 41.0 % [facility] MONOS 8.6 4.0 - 11.0 % [facility] EOS 0.5 0.0 - 5.0 % [facility] BASOS 0.4 0.0 - 1.5 % [facility] Granulocytes, immature (%) 0.2 0.0 - 0.9 % [facility] ABSOLUTE NEUTS 5.16 1.92 - 7.60 K/uL [facility] ABSOLUTE LYMPHS 2.08 0.72 - 4.10 K/uL [facility] ABSOLUTE MONOS 0.69 0.16 - 1.10 K/uL [facility] ABSOLUTE EOS 0.04 0.00 - 0.50 K/uL [facility] ABSOLUTE BASOS 0.03 0.00 - 0.15 K/uL [facility] Granulocytes, immature 0.02 0.00 - 0.09 K/uL [facility] Blood 12/13/2024 7:06 PM EDT 12/13/2024 7:17 PM EDT Kayley Meier MD, MS LAB BLOOD ORDERABLES Shawna l Result Performing Organization Address City/[facility]/ZIP Co de Phone Number [facility] [address] [place] [address] * (ABNORMAL) Basic metabolic panel (12/13/2024 7:06 PM EDT) SODIUM 143 136 - 145 mmol/L [facility] CHLORIDE 105 95 - 106 mmol/L [facility] POTASSIUM 4.7 3.5 - 5.2 mmol/L [facility] Comment:INTERPRET WITH CAUTI ON, SPECIMEN HEMOLYZED CO2 24 20 - 31 mmol/L [facility] BUN 21 9 - 23 mg/dL [facility] CREATININE 1.25 0.50 - 1.30 mg/dL [facility] GLUCOSE 86 74 - 106 mg/dL [facility] CALCIUM 9.5 8.7 - 10.4 mg/dL [facility] EGFR 58(L) >60 mL/min/1.7 3m2 [facility] Comment:Estimated glomerular filtration rate calculated using the CKD-EPI refit equation. ANION GAP 14 3 - 17 mmol/L [facility] Blood 12/13/2024 7:06 PM EDT 12/13/2024 7:21 PM EDT Kayley Meier MD, MS LAB BLOOD ORDERABLES Shawna l Result Performing Organization Address [facility]/ZIP Co de Phone Number [facility] [address] [place] [address] * PSA (screening) (12/05/2024 3:01 PM EDT) Prostate Specific Antigen Scrn 1.82 <0.04 - 4.0 ng/mL [facility] Comment: Assay performed on the [employer] utilizing direct chemiluminescent methodology. Patient results determined by assays using different manufacturers or methods may not be comparable. Although this assay has an undetectable range of <0.04 ng/mL, readings of 0.04 or 0.05 ng/mL have been measured in patients clinically deemed unlikely to have significant levels of PSA (e.g. post-menopausal females or males with undetectable PSA on another method). Therefore, values in this range should be interpreted with caution. 12/05/2024 3:01 PM EDT us Noris Calderon MD LAB BLOOD ORDERABLES Final Resu lt [facility] [address] [place] [address], [facility] [phone] from Last 3 Months Insurance [employer] MEDEX SUPPLEMENT MEDICARE PART A & B [employer] MED[employer] SUPPLEMENT MEDICARE PART A & B [employer] MED[employer] SUPPLEMENT MEDICARE PART A & B [employer] MED[employer] SUPPLEMENT MEDICARE PART A & B [employer] MEDEX SUPPLEMENT MEDICARE PART A & B [employer] MEDEX SUPPLEMENT MEDICARE PART A & B [employer] MEDEX SUPPLEMENT MEDICARE PART A & B [facility] MEDEX SUPPLEMENT MEDICARE PART A & B [employer] MEDEX SUPPLEMENT [employer] MEDEX SUPPLEMENT MEDICARE PART A & B Member Subscriber Plan / Payer ( fective 1972-) Name:Yong Madrid Member ID:[id number] Relation to Subscriber:Self Name:Yong Madrid Subscriber ID:[id number] Payer ID:[id number] Group ID:Not on file Type:Medicare Address: [employer] [facility]. [address] [place] [address] [employer] MEDEX SUPPLEMENT MEDICARE PART A & B [employer] MEDEX SUPPLEMENT MEDICARE PART A & B MEDICARE PART A & B [employer] MEDEX SUPPLEMENT MEDICARE PART A & B [employer] MEDEX SUPPLEMENT [employer] MEDEX SUPPLEMENT MEDICARE PART A & B MEDICARE PART A & B [employer] MEDEX SUPPLEMENT MEDICARE PART A & B [employer] CROSS MEDEX SUPPLEMENT Advance Directives For more information, please contact: [phone] (9AM - 5PM [facility], Tuesday-Tuesday) * Full Code (Latest Code Status on File) Date Activated Date Inactivated Comments 12/14/2024 5:58 PM Question Answer Comments Code Status Confirmed With: Patient Code Status Communicated To: Inpatient Attending * Full Code Date Activated Date Inactivated Comments 08/21/2024 1:10 AM 12/14/2024 5:58 PM Question Answer Comments Code Status Confirmed With: Patient * Full Code Date Activated Date Inactivated Comments 08/09/2024 4:11 AM 08/21/2024 1:10 AM Question Answer Comments Code Status Confirmed With: Patient Care Teams Lumber Carrier Operator Relationship Specialty Start Date End Date Noris Calderon MD [address] [facility] [address] [place] [address] [email or web address] PCP - General Family Medicine 11/23/24 Armando Morrow MD Dermatology 10/03/18 Chiara Campuzano MD [address] [address] Insurance Assigned Provider 06/17/24 Anh Ramírez [address] [place] [id number] PHCM Cellular Biologist 11/30/24 Additional Source Comments The information contained in this document represents components of the legal health record. It is not the complete legal health record.[facility]
--- OUTSIDE RECORDS SUMMARY | 2025-01-09 20:26 | XMS_ITS | Encounter Summary ---
Author Organization [facility] Address [address] [employer] [facility] [address] [place] [address] Phone Care Team Providers Care Supervisor Assembling Name Role Phone Armando Morrow MD Unavailable Chiara Park MD Primary Care Provider Chiara Park MD Unavailable Noris Calderon MD Primary Care Provider [phone] Anh Ramírez Unavailable [email or web address] Radha Samano MA Unavailable [email or web address] Reason for Visit * Reason Onset Date Comments Medication Refill 09/20/2024 Encounter Details Date Type Department Care Team (Late st Contact Info) Description 09/20/2024 Refill [facility] [address] [facility] [address] [place] [address] Alma Rosa Galindo [address] [place] [address] Medication Refill Social History Tobacco Use Types Packs/Day Years [...] Upcoming Encounters Date Type Department Care Team ([facility] st Contact Info) Description 01/25/2025 1:30 PM EST [facility] [address] [address] Noris Calderon MD [address] [address] documented as of this encounter Visit Diagnoses Not on filedocumented in this encounter Additional Health Concerns Assessment Noted Time PHQ-9 Depression Total Score: 4 02/22/20 24 12:10 PM EST PHQ-2 Depression Total Score: 1 02/22/20 24 12:10 PM EST documented as of this encounter Care Teams Supervisor Assembling Relationship Specialty Start Date End Date Chiara Park MD [address] [address] PCP - General Internal Medicine 01/09/24 11/22/24 Noris Calderon MD [address] [address] PCP - General Family Medicine 11/23/24 Armando Morrow MD Dermatology 10/03/18 Chiara Park MD [address] [address] Insurance Assigned Provider 06/17/24 Anh Ramírez [address] [place] [address] PHCM Rn Psych 11/30/24 Radha Irving MA [address] [place] [address] PHCM Community Health Worker 11/30/24 12/04/24 documented as of this encounter Additional Source Comments The information contained in this document represents components of the legal health record. It is not the complete legal health record.[facility]
[2025-01-09 22:00] VITALS: BP 170/85; PULSE 92; RESP 18; TEMP 36.8; O2SAT 97
[2025-01-09 22:10] VITALS: BMI 28.8
[2025-01-09 23:00] VITALS: RESP 18
--- NOTE | 2025-01-10 07:06 | PC.NURSE ---
01/09/25 arrived on unit via ambulance 2029 oriented to unit he is awake alert refused to sign CV said he would not voluntarily want to be here DR informed continue 12b Cpap over night He is alert orient said he is depressed not suicidal.
[2025-01-10 08:14] VITALS: BP 161/75; PULSE 83; RESP 18; TEMP 36.6; O2SAT 97
--- NOTE | 2025-01-10 08:15 | HO.PM.IMCN ---
History of Present Illness Data of Consult Service Date: 01/10/25 Primary Care Provider: Noris NARANJO Reason for consult: Medical consult 79-year-old male with a past medical history of depression, hypertension, hyperlipidemia, DVT/PE on Eliquis, diagnosed 2024, with worsening depression and suicide ideation. Initial workup revealed no leukocytosis, mild anemia. No electrolyte imbalances mild kidney impairment. Negative tox screen. EKG with normal sinus rhythm. On exam patient reports chronic right shoulder pain. Not painful at present but does bother him at times. Patient is also reporting difficulty with his voice ?locks also reports that he occasionally feels something in his throat. Denies any dysphagia, able to manage his secretions, denies sore throat. Reports that he feels something in his throat at various times and when he turns his neck various ways. No redness, no palpable masses. He otherwise feels well. Review of Systems Review of Systems: Denies shortness of breath, chest pain, abdominal pain, dysuria, muscle aches, fever or chills Yes all other systems are reviewed and are negative PMFSH Social History Household Members: Spouse Housing: House Do you presently have visiting nurse or other home services: No Comment: 5 minutes while on CPAP Patient Tobacco Use Status: Never used Tobacco Smoked in Last 30 Days: No e-Cigarette/Vaping Use: Never Used Patient Interested in Nicotine Replacement: No Patient Given Instructions on How to Stop Smoking: No Second Hand Smoke Exposure: No Currently Displaying Signs/Symptoms of Drug Intoxication Withdrawal: No Have you been hit, kicked, punched, or otherwise hurt by someone within the past year? If so, by whom?: No Do you feel safe in your current relationship?: No Current Relationship Is there a partner from a previous relationship who is making you feel unsafe now?: No Are you made to feel afraid or neglected: No Spiritual Healthcare Practices: none Advance Directives: No Advance Directives Information Provided: No Do you have thoughts of harming others: None Do you have a plan to hurt others: No Plan Recently lost weight without trying: No Eating poorly because of decreased appetite: No Nutrition Risks: No Nutritional Risk Poor oral hygiene: No service: No Sexual orientation: Straight/Heterosexual Meds Allergies Allergy/AdvReac Type Severity Reaction Status Date / Time No Known Allergies Allergy Verified 01/09/25 22:06 Active Medications: Current Medications Acetaminophen (Acetaminophen 325 Mg Tablet) 650 mg PO Q6H PRN PRN Reason: Headache/Pain, Scale 1-10 Al Hydroxide/Mg Hydroxide (Magnesium Hydrox/Alum Hydrox 30 Ml Oral.Susp) 30 ml PO Q6H PRN PRN Reason: Heartburn/Nausea Amlodipine Besylate (Amlodipine Besylate 2.5 Mg Tablet) 2.5 mg PO DAILY [facility]; Protocol Apixaban (Apixaban 5 Mg Tablet) 5 mg PO BID [facility] Aripiprazole (Aripiprazole 2 Mg Tablet) 2 mg PO DAILY [facility] Atorvastatin Calcium (Atorvastatin Calcium 10 Mg Tablet) 10 mg PO DAILY [facility] Bupropion HCl (Bupropion Hcl Xl 300 Mg Tab.Er.24h) 300 mg PO DAILY [facility] Donepezil HCl (Donepezil Hcl 5 Mg Tablet) 5 mg PO DAILY [facility] Magnesium Hydroxide (Milk Of Magnesia 30 Ml Oral.Susp) 30 ml PO DAILY PRN PRN Reason: Constipation Naproxen (Naproxen 500 Mg Tablet) 500 mg PO BID [facility] Nicotine (Nicotine 21 Mg Patch.Td24) 21 mg TRANSDERMA DAILY PRN PRN Reason: smoking cessation Nicotine Polacrilex (Nicotine Polacrilex 2 Mg Gum) 4 mg BUCCAL Q2H PRN PRN Reason: Nicotine Cravings Olanzapine (Olanzapine 2.5 Mg Tablet) 2.5 mg PO TID PRN PRN Reason: agitation Trazodone HCl (Trazodone Hcl 50 Mg Tablet) 50 mg PO BEDTIME MRX1 PRN PRN Reason: Insomnia Venlafaxine HCl (Venlafaxine Hcl Er 75 Mg Cap.Er.24h) 75 mg PO DAILY [facility] Home Medications ?Medication ?Instructions ?Recorded ?Confirmed ?Last Taken ?Type amlodipine 2.5 mg tablet 2.5 mg PO DAILY 01/09/25 01/09/25 01/09/25 08:00 History amlodipine 2.5 mg tablet 2.5 mg PO DAILY 01/09/25 01/09/25 01/09/25 08:00 History apixaban 5 mg tablet (Eliquis) 5 mg PO BID 01/09/25 01/09/25 01/09/25 08:00 History 5 mg aripiprazole 2 mg tablet 2 mg PO DAILY 01/09/25 01/09/25 01/09/25 08:00 History atorvastatin 10 mg tablet 10 mg PO DAILY 1001/09/25 01/09/25 08:00 History 10 mg bupropion HCl 150 mg 24 hr tablet, 300 mg PO DAILY 01/09/25 01/09/25 01/09/25 08:00 History extended release donepezil 5 mg tablet 5 mg PO DAILY 01/09/25 01/09/25 01/09/25 08:00 History 5 mg ketoconazole 2 % topical cream appl topical DAILY 01/09/25 01/09/25 08:00 History 2% meloxicam 15 mg tablet 15 mg PO DAILY 01/09/25 01/09/25 01/09/25 08:00 History venlafaxine 75 mg capsule,extended 75 mg PO DAILY 01/09/25 01/09/25 01/09/25 08:00 History release 24 hr 75 Physical Exam Vital Signs and Narrative: Vital Signs: Last Vital Signs Temp 97.9 F 01/10/25 08:14 Pulse 83 01/10/25 08:14 Resp 18 01/10/25 08:14 BP 161/75 H 01/10/25 08:14 Pulse Ox 97 01/10/25 08:14 O2 Del Method Room Air 01/10/25 08:14 BMI result Body Mass Index 28.8 Alert and oriented X3, able to give good history. Weepy at times. Neuro: CN II-X11 intact, no deficits, visual acuity intact EYES: PERRLA, EOM intact ENT: Hearing intact, lips moist, neck supple, no masses. Cardiac: S1 S2 RRR, No ectopy Pulmonary: lungs clear to auscultation, No increased WOB. Abdominal: BS active in all 4 quadrants, no guarding or tenderness MSK: Strength 5/5 upper and lower extremities : Deferred Extremities: No edema in lower extremities, PT and DP pulses palpable +2 Psych: mood stable, Quiet and cooperative. Skin: Warm and dry, Intact Results Labs 01/10/25 07:20 Assessment and Plan (1) HTN (hypertension): Status: Acute Plan 79-year-old male with past medical history listed below admitted to inpatient geriatric psych unit due to increased depression and suicide ideation. Depression/suicide ideation Treatment per psychiatric team HTN/HLD Continue amlodipine and Lipitor DVT Continue Eliquis b.i.d. Cognitive impairment Continue Aricept Right shoulder pain Lidocaine gel as needed every 6 hours Patient reporting throat discomfort Check ultrasound to rule out soft tissue mass Thank you for allowing me to participate in the care of this patient. Will follow with you, please notify medical provider with any changes in condition or concerns.
[2025-01-10 08:18] LABS: Alanine Aminotransferase 21 U/L (0-40); Albumin Level 3.9 g/dL (3.5-5.0); Alkaline Phosphatase 76 U/L (39-117); Anion Gap 12 (12-20); Aspartate Amino Transferase 22 U/L (5-37); Blood Urea Nitrogen 28 mg/dL (9-16); Calcium 8.8 mg/dL (8.4-10.2); Carbon Dioxide 25 mmol/L (22-29); Chloride 109 mmol/L (96-108); Cholesterol 125 mg/dL (<200); Creatinine Clr Calc Pharmacy 46.1; Estimated Glomerular Filt Rate 52; HDL Cholesterol 51 mg/dL (>40); Potassium 4.2 mmol/L (3.3-5.1); Sodium 142 mmol/L (135-145); Total Protein 6.5 g/dL (6.5-8.0); Triglycerides 75 mg/dL (<150)
[2025-01-10 08:23] LABS: Total Hemoglobin (HGBA1C) 3143.8858 umol/L
[2025-01-10] MEDS: buPROPion HCl XL 300 MG TAB.ER.24H PO (09:26)
[2025-01-10 09:29] VITALS: BP 157/76; PULSE 93
[2025-01-10] MEDS: Venlafaxine HCl ER 75 MG CAP.ER.24H PO (09:30)
[2025-01-10 12:03] VITALS: BMI 25.2
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
[2025-01-10 19:47] VITALS: BP 146/70; PULSE 93; RESP 15; TEMP 36.2; O2SAT 98
[2025-01-10 22:26] VITALS: PULSE 82; RESP 22; O2SAT 98
[2025-01-11 08:22] VITALS: BP 167/77; PULSE 89; RESP 20; TEMP 36.9; O2SAT 95
[2025-01-11] MEDS: Venlafaxine HCl ER 150 MG CAP.ER.24H PO (08:24)
[2025-01-11] MEDS: buPROPion HCl XL 300 MG TAB.ER.24H PO (08:25)
--- NOTE | 2025-01-11 09:43 | P.PNPSI_ITS ---
Subjective Subjective Date of Service: 01/11/25 Reason For Visit: decompensation Subjective Notes: Guerra Warning and Conditional Voluntary Guardianship: No Medical Problems Affecting Mental Status: No Interim History: Medical record and nursing notes reviewed; case discussed during rounds with team/nursing staff, and met with patient for supportive therapy/psychoeducation, as well as medication management. Patient reports that he slept better with the mask of CPAP was adjusted better last night. Report better appetite and that he eats more than usually does. Report anxiety and depression have slighly improve. However, he is tearful when this provider and SW talked to him at dining table regarding treatment/discharge. He easily gets anxious and overwhelmed and becomes tearful when emotional. Report just talking like this he feels his anxiety and depression got to his chest. He thinks the best for him is exercise. He was reluctant to sign CV but made up his mind to stay for another week for medication management and monitor for his mood. Possible discharge next week on or Tuesday. Patient also signed consent to release information to daughter and . Also discuss with patient to start on small dose of Ativan to see it is helpful to control his severe anxitey while titrating other medications. Per nursing, patient took first dose and it is helpful. He does not express SI/SIB/HI/AVH but anxious and depression in high level, can be tearful at times. Visible, attended groups, slept for 7 hours. Medication compliant, mood can be up and down. Medication Compliance: Yes Side effects from medications: No Attending Groups: Yes Review of Systems Acute medical concerns: No Medical Review of Systems: unchanged Review of Systems Review of Systems Constitutional: Denies fatigue and Denies fever(s) Cardiovascular: Denies chest pain and Denies dyspnea Respiratory: Denies dyspnea Gastrointestinal: Denies abdominal pain Psychiatric: denies suicidal ideation Endocrine: Denies fatigue Yes all other systems are reviewed and are negative Mental Status Exam Mental Status Exam Narrative: Patient is A+Ox3, wearing own attire, anxious, sad, tearful but pleasant and cooperative. No ADL's issues. Speech is WNL,normal rate and volume. Thought process is tangential, circumstances, Some cognitive impairment noted, forgetful. Thought content is WNL. No SI/SIB/HI/AVH. Do not make any delusions/paranoid statements. Insight and judgement are poor. Diagnostics Vital Signs (24Hr): Vital Signs - 24 hr 01/10/25 19:47 01/10/25 22:26 01/11/25 08:22 Temperature 97.1 F 98.4 F Pulse Rate 93 89 Respiratory Rate 15 22 H 20 Blood Pressure 146/70 H 167/77 H Pulse Oximetry 98 95 Oxygen Delivery Method Room Air Room Air BMI result Body Mass Index 25.2 Labs 01/10/25 07:20 Labs: Laboratory Results - last 48 hr 01/10/25 07:20 Sodium 142 Potassium 4.2 Chloride 109 H Carbon Dioxide 25 Anion Gap 12 BUN 28 H Creatinine 1.32 Estim Creat Clear Calc 46.1 Estimated GFR 52 Random Glucose 92 Estimat Average Glucose 117 Hemoglobin A1c % 5.7 Calcium 8.8 Total Bilirubin 0.2 AST 22 ALT 21 Alkaline Phosphatase 76 Total Protein 6.5 Albumin 3.9 Triglycerides 75 Cholesterol 125 LDL Cholesterol, Calc 59 HDL Cholesterol 51 TSH 1.46 Medications Medications Current Medications Acetaminophen (Acetaminophen 325 Mg Tablet) 650 mg PO Q6H PRN PRN Reason: Headache/Pain, Scale 1-10 Al Hydroxide/Mg Hydroxide (Magnesium Hydrox/Alum Hydrox 30 Ml Oral.Susp) 30 ml PO Q6H PRN PRN Reason: Heartburn/Nausea Amlodipine Besylate (Amlodipine Besylate 2.5 Mg Tablet) 2.5 mg PO DAILY [facility]; Protocol Last Admin: 01/11/25 08:24 Dose: 2.5 mg Apixaban (Apixaban 5 Mg Tablet) 5 mg PO BID [facility] Last Admin: 01/11/25 08:24 Dose: 5 mg Aripiprazole (Aripiprazole 2 Mg Tablet) 2 mg PO DAILY [facility] Last Admin: 01/11/25 08:25 Dose: 2 mg Atorvastatin Calcium (Atorvastatin Calcium 10 Mg Tablet) 10 mg PO DAILY [facility] Last Admin: 01/11/25 08:25 Dose: 10 mg Bupropion HCl (Bupropion Hcl Xl 300 Mg Tab.Er.24h) 300 mg PO DAILY [facility] Last Admin: 01/11/25 08:25 Dose: 300 mg Donepezil HCl (Donepezil Hcl 5 Mg Tablet) 5 mg PO DAILY [facility] Last Admin: 01/11/25 08:24 Dose: 5 mg Magnesium Hydroxide (Milk Of Magnesia 30 Ml Oral.Susp) 30 ml PO DAILY PRN PRN Reason: Constipation Naproxen (Naproxen 500 Mg Tablet) 500 mg PO BID [facility] Last Admin: 01/11/25 08:25 Dose: 500 mg Nicotine (Nicotine 21 Mg Patch.Td24) 21 mg TRANSDERMA DAILY PRN PRN Reason: smoking cessation Nicotine Polacrilex (Nicotine Polacrilex 2 Mg Gum) 4 mg BUCCAL Q2H PRN PRN Reason: Nicotine Cravings Olanzapine (Olanzapine 2.5 Mg Tablet) 2.5 mg PO TID PRN PRN Reason: agitation Trazodone HCl (Trazodone Hcl 50 Mg Tablet) 50 mg PO BEDTIME MRX1 PRN PRN Reason: Insomnia Venlafaxine HCl (Venlafaxine Hcl Er 150 Mg Cap.Er.24h) 150 mg PO DAILY [facility] Last Admin: 01/11/25 08:24 Dose: 150 mg Allergies Allergies Allergy/AdvReac Type Severity Reaction Status Date / Time No Known Allergies Allergy Verified 01/09/25 22:06 Assessment & Plan Assessment & Plan (1) MDD (major depressive disorder), recurrent episode, moderate: Status: Acute Code(s): F33.1 - Major depressive disorder, recurrent, moderate (2) HTN (hypertension): Status: Acute Code(s): I10 - Essential (primary) hypertension (3) HLD (hyperlipidemia): Status: Acute Code(s): E78.5 - Hyperlipidemia, unspecified (4) RAJEEV on CPAP: Status: Acute Code(s): G47.33 - Obstructive sleep apnea (adult) (pediatric); Z99.89 - Dependence on other enabling machines and devices Plan HPI: patient is a 7.y.o , [place]raini Speaking male with hx of HTN, DVT, HLD, stomach ulcer, RAJEEV, depression who was BIBA on a section 12 from [facility] d/t passive SI and depression. Patient reports left me 3-4 months ago and sicne then he has had worsening depression. Patient reports that he was at [facility] and was crying as so he was sent to ED. Report that his depression was on and off most of my life since he was 9 y.o but depressive episode is different this time and symptoms got worse. Patient reports that he has been compliant with medications but medication does not seem to work well after for a while being on them. Recently have medication changes/ dosage changes. He picked them up from pharmacy but has not yet started. reports that patient has not been doing well and has been very depressed for a long time. reports patient making statement like Well now I've got pills, I can take a bunch of pills and that's it a couple of days ago. Report that patient has anger issues for a long time. Formulation/clinical reasoning: Hospital course: 01/10/25: Abilify 2mg for severe anxiety, depression Increase Effexor up to 150mg from 75mg for depression Wellbutrin XL 300mg daily for depression/anxiety Norvasc 2.5mg daily for HTN Atorvastatin 10mg daily Eliquis 5mg BID. Naproxin 500mg BID for pain. Aricept 5mg daily for cognitive impairment 01/11/25: Patient reports that he slept better with the mask of CPAP was adjusted better last night. Report better appetite and that he eats more than usually does. Report anxiety and depression have slighly improve. However, he is tearful when this provider and SW talked to him at dining table regarding treatment/discharge. He easily gets anxious and overwhelmed and becomes tearful when emotional. Report just talking like this he feels his anxiety and depression got to his chest. He thinks the best for him is exercise. He was reluctant to sign CV but made up his mind to stay for another week for medication management and monitor for his mood. Possible discharge next week on or Tuesday. Patient also signed consent to release information to daughter and . Also discuss with patient to start on small dose of Ativan to see it is helpful to control his severe anxitey while titrating other medications. Per nursing, patient took first dose and it is helpful. He does not express SI/SIB/HI/AVH but anxious and depression in high level, can be tearful at times. Visible, attended groups, slept for 7 hours. Medication compliant, mood can be up and down. Elevated BP. Continue to monitor. Encourage fluid, BUN 28. Plan Patient on 5 minute checks for safety at night- CPAP. 15 while awake. Admitted to S1. signed CV on 01/11/25. Tentative discharge next week on or Tuesday. Work with treatment team to do collateral. Team to reach out [address] regarding coming court day on Tuesday01/14/25 Contact the hospitalist regarding hospitalist consultation on admission: seen by hospitalist on 01/10/25. Utox and BAL negative. EKG Unremarkable in the ED Lab results on 01/10: unremarkable. BP elevated. Patient educated on: diagnosis, medication risk/benefits and therapeutic strategies Informed Consent: understands and further education needed Reason for continued inpatient stay Substantial Risk for: med/psych decompensation Time Spent With Patient Time: Total time managing care of this patient today ____ minutes.
[2025-01-11 20:00] VITALS: BP 167/79; PULSE 96; RESP 18; TEMP 36.7; O2SAT 100
[2025-01-11 23:00] VITALS: PULSE 81; RESP 21; O2SAT 98
[2025-01-12 08:00] VITALS: BP 154/72; PULSE 92; TEMP 37; O2SAT 99
[2025-01-12] MEDS: buPROPion HCl XL 300 MG TAB.ER.24H PO (09:03)
[2025-01-12] MEDS: Venlafaxine HCl ER 150 MG CAP.ER.24H PO (09:04)
--- NOTE | 2025-01-12 19:15 | P.PNPSI_ITS ---
Subjective Subjective Date of Service: 01/12/25 Reason For Visit: decompensation Interim History: Chart reviewed, case discussed w/ nursing staff Pt reports that he's depressed but feeling better overall since admission. He denies SI. Reports that he randomly has episodes in which he feels a sensation in his chest going up to his throat, which he feels is related to sadness, and then he starts crying. He has identified some triggers s/a music or certain thoughts. He is hopeful that the recent med change will help w/ his depression. He's found exercise to be most helpful. He looks forward to travelling to [place], where he used to travel many times for work. 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 Denies med SE. had poor sleep last night b/c he couldn't get his CPAP back on after going to the bathroom. Agrees to ask staff for help if he has issues tonight fair appetite MSE: Appearance: somewhat disheveled. appears tired Attitude:Cooperative Speech: Fluent and wnl in regard to volume, tone, prosody Motor activity: Calm and without any tics, tremors or dyskinesias. Steady gait Mood: as noted above Affect: appropriate, generally constricted Thought process: goal directed and without evidence of formal thought disorder Thought content: as noted above. Future oriented Perception: Denies AH/VH and does not appear to respond to internal stimuli Alert/oriented in all spheres Cognition grossly intact Insight: intact Judgment: intact Diagnostics Vital Signs (24Hr): Vital Signs - 24 hr 01/11/25 20:00 01/11/25 23:00 01/12/25 08:00 Temperature 98.1 F 98.6 F Pulse Rate 96 92 Respiratory Rate 18 21 H Blood Pressure 167/79 H 154/72 H Pulse Oximetry 100 99 Oxygen Delivery Method Room Air BMI result Body Mass Index 25.2 Labs 01/10/25 07:20 Medications Medications Current Medications Acetaminophen (Acetaminophen 325 Mg Tablet) 650 mg PO Q6H PRN PRN Reason: Headache/Pain, Scale 1-10 Al Hydroxide/Mg Hydroxide (Magnesium Hydrox/Alum Hydrox 30 Ml Oral.Susp) 30 ml PO Q6H PRN PRN Reason: Heartburn/Nausea Amlodipine Besylate (Amlodipine Besylate 2.5 Mg Tablet) 2.5 mg PO DAILY [facility]; Protocol Last Admin: 01/12/25 09:10 Dose: 2.5 mg Apixaban (Apixaban 5 Mg Tablet) 5 mg PO BID [facility] Last Admin: 01/12/25 09:06 Dose: 5 mg Aripiprazole (Aripiprazole 2 Mg Tablet) 2 mg PO DAILY [facility] Last Admin: 01/12/25 09:03 Dose: 2 mg Atorvastatin Calcium (Atorvastatin Calcium 10 Mg Tablet) 10 mg PO DAILY [facility] Last Admin: 01/12/25 09:03 Dose: 10 mg Bupropion HCl (Bupropion Hcl Xl 300 Mg Tab.Er.24h) 300 mg PO DAILY [facility] Last Admin: 01/12/25 09:03 Dose: 300 mg Donepezil HCl (Donepezil Hcl 5 Mg Tablet) 5 mg PO DAILY [facility] Last Admin: 01/12/25 09:06 Dose: 5 mg Lidocaine (Lidocaine 5 % Ointment 35 Gm) 1 appl TOPICAL Q6H PRN; Protocol PRN Reason: Right shoulder pain Lorazepam (Lorazepam 0.5 Mg Tablet) 0.25 mg PO BID [facility] Last Admin: 01/12/25 09:05 Dose: 0.25 mg Magnesium Hydroxide (Milk Of Magnesia 30 Ml Oral.Susp) 30 ml PO DAILY PRN PRN Reason: Constipation Naproxen (Naproxen 500 Mg Tablet) 500 mg PO BID [facility] Last Admin: 01/12/25 09:05 Dose: Not Given Nicotine (Nicotine 21 Mg Patch.Td24) 21 mg TRANSDERMA DAILY PRN PRN Reason: smoking cessation Nicotine Polacrilex (Nicotine Polacrilex 2 Mg Gum) 4 mg BUCCAL Q2H PRN PRN Reason: Nicotine Cravings Olanzapine (Olanzapine 2.5 Mg Tablet) 2.5 mg PO TID PRN PRN Reason: agitation Trazodone HCl (Trazodone Hcl 50 Mg Tablet) 50 mg PO BEDTIME MRX1 PRN PRN Reason: Insomnia Venlafaxine HCl (Venlafaxine Hcl Er 150 Mg Cap.Er.24h) 150 mg PO DAILY [facility] Last Admin: 01/12/25 09:04 Dose: 150 mg Allergies Allergies Allergy/AdvReac Type Severity Reaction Status Date / Time No Known Allergies Allergy Verified 01/09/25 22:06 Assessment & Plan Assessment & Plan (1) MDD (major depressive disorder), recurrent episode, moderate: Status: Acute Code(s): F33.1 - Major depressive disorder, recurrent, moderate (2) HTN (hypertension): Status: Acute Code(s): I10 - Essential (primary) hypertension (3) HLD (hyperlipidemia): Status: Acute Code(s): E78.5 - Hyperlipidemia, unspecified (4) RAJEEV on CPAP: Status: Acute Code(s): G47.33 - Obstructive sleep apnea (adult) (pediatric); Z99.89 - Dependence on other enabling machines and devices Plan HPI: patient is a 7.y.o , Croatian Speaking male with hx of HTN, DVT, HLD, stomach ulcer, RAJEEV, depression who was BIBA on a section 12 from [facility] d/t passive SI and depression. Patient reports left me 3-4 months ago and sicne then he has had worsening depression. Patient reports that he was at [facility] and was crying as so he was sent to ED. Report that his depression was on and off most of my life since he was 9 y.o but depressive episode is different this time and symptoms got worse. Patient reports that he has been compliant with medications but medication does not seem to work well after for a while being on them. Recently have medication changes/ dosage changes. He picked them up from pharmacy but has not yet started. reports that patient has not been doing well and has been very depressed for a long time. reports patient making statement like Well now I've got pills, I can take a bunch of pills and that's it a couple of days ago. Report that patient has anger issues for a long time. Formulation/clinical reasoning: Hospital course: 01/10/25: Abilify 2mg for severe anxiety, depression Increase Effexor up to 150mg from 75mg for depression Wellbutrin XL 300mg daily for depression/anxiety Norvasc 2.5mg daily for HTN Atorvastatin 10mg daily Eliquis 5mg BID. Naproxin 500mg BID for pain. Aricept 5mg daily for cognitive impairment 01/11/25: Patient reports that he slept better with the mask of CPAP was adjusted better last night. Report better appetite and that he eats more than usually does. Report anxiety and depression have slighly improve. However, he is tearful when this provider and SW talked to him at dining table regarding treatment/discharge. He easily gets anxious and overwhelmed and becomes tearful when emotional. Report just talking like this he feels his anxiety and depression got to his chest. He thinks the best for him is exercise. He was reluctant to sign CV but made up his mind to stay for another week for medication management and monitor for his mood. Possible discharge next week on or Tuesday. Patient also signed consent to release information to daughter and . Also discuss with patient to start on small dose of Ativan to see it is helpful to control his severe anxitey while titrating other medications. Per nursing, patient took first dose and it is helpful. He does not express SI/SIB/HI/AVH but anxious and depression in high level, can be tearful at times. Visible, attended groups, slept for 7 hours. Medication compliant, mood can be up and down. Elevated BP. Continue to monitor. Encourage fluid, BUN 28. 01/11: Continue current tx plan Plan Patient on 5 minute checks for safety at night- CPAP. 15 while awake. Admitted to S1. signed CV on 01/11/25. Tentative discharge next week on or Tuesday. Work with treatment team to do collateral. Team to reach out [place] [address] regarding coming court day on Tuesday01/14/25 Contact the hospitalist regarding hospitalist consultation on admission: seen by hospitalist on 01/10/25. Utox and BAL negative. EKG Unremarkable in the ED Lab results on 01/10: unremarkable. BP elevated. Reason for continued inpatient stay Substantial Risk for: med/psych decompensation Time Spent With Patient Time: Total time managing care of this patient today ____ minutes.
[2025-01-12 20:00] VITALS: BP 168/73; PULSE 91; RESP 18; TEMP 36.9; O2SAT 99
[2025-01-12 23:15] VITALS: PULSE 69; O2SAT 97
[2025-01-13 08:00] VITALS: BP 165/72; PULSE 88; RESP 16; TEMP 37.7; O2SAT 99
[2025-01-13] MEDS: Venlafaxine HCl ER 150 MG CAP.ER.24H PO (09:12)
[2025-01-13] MEDS: buPROPion HCl XL 300 MG TAB.ER.24H PO (09:13)
--- NOTE | 2025-01-13 18:59 | P.PNPSI_ITS ---
Subjective Subjective Date of Service: 01/13/25 Reason For Visit: decompensation Interim History: Chart reviewed, case discussed w/ nursing staff Kept CPAP on all night, slept better Reports feeling a little better today. Wonders if the meds are starting to help Denies SI Denies med SE MSE: Appearance: good eye contact, fair grooming Attitude:Cooperative Speech: Fluent and wnl in regard to volume, tone, prosody Motor activity: Calm and without any tics, tremors or dyskinesias. Steady gait Mood: as noted above Affect: blunted Thought process: goal directed and without evidence of formal thought disorder Thought content: as noted above. Future oriented Perception: Denies AH/VH and does not appear to respond to internal stimuli Alert/oriented in all spheres Cognition grossly intact Insight: intact Judgment: intact Diagnostics Vital Signs (24Hr): Vital Signs - 24 hr 01/12/25 20:00 01/13/25 08:00 Temperature 98.4 F 99.9 F Pulse Rate 91 88 Respiratory Rate 18 16 Blood Pressure 168/73 H 165/72 H Pulse Oximetry 99 99 Oxygen Delivery Method Room Air Room Air BMI result Body Mass Index 25.2 Labs 01/10/25 07:20 Medications Medications Current Medications Acetaminophen (Acetaminophen 325 Mg Tablet) 650 mg PO Q6H PRN PRN Reason: Headache/Pain, Scale 1-10 Al Hydroxide/Mg Hydroxide (Magnesium Hydrox/Alum Hydrox 30 Ml Oral.Susp) 30 ml PO Q6H PRN PRN Reason: Heartburn/Nausea Amlodipine Besylate (Amlodipine Besylate 2.5 Mg Tablet) 2.5 mg PO DAILY [facility]; Protocol Last Admin: 01/13/25 09:12 Dose: 2.5 mg Apixaban (Apixaban 5 Mg Tablet) 5 mg PO BID [facility] Last Admin: 01/13/25 09:12 Dose: 5 mg Aripiprazole (Aripiprazole 2 Mg Tablet) 2 mg PO DAILY [facility] Last Admin: 01/13/25 09:12 Dose: 2 mg Atorvastatin Calcium (Atorvastatin Calcium 10 Mg Tablet) 10 mg PO DAILY [facility] Last Admin: 01/13/25 09:12 Dose: 10 mg Bupropion HCl (Bupropion Hcl Xl 300 Mg Tab.Er.24h) 300 mg PO DAILY [facility] Last Admin: 01/13/25 09:13 Dose: 300 mg Donepezil HCl (Donepezil Hcl 5 Mg Tablet) 5 mg PO DAILY [facility] Last Admin: 01/13/25 09:13 Dose: 5 mg Lidocaine (Lidocaine 5 % Ointment 35 Gm) 1 appl TOPICAL Q6H PRN; Protocol PRN Reason: Right shoulder pain Lorazepam (Lorazepam 0.5 Mg Tablet) 0.25 mg PO BID [facility] Last Admin: 01/13/25 09:12 Dose: 0.25 mg Magnesium Hydroxide (Milk Of Magnesia 30 Ml Oral.Susp) 30 ml PO DAILY PRN PRN Reason: Constipation Naproxen (Naproxen 500 Mg Tablet) 500 mg PO BID [facility] Last Admin: 01/13/25 09:18 Dose: Not Given Nicotine (Nicotine 21 Mg Patch.Td24) 21 mg TRANSDERMA DAILY PRN PRN Reason: smoking cessation Nicotine Polacrilex (Nicotine Polacrilex 2 Mg Gum) 4 mg BUCCAL Q2H PRN PRN Reason: Nicotine Cravings Olanzapine (Olanzapine 2.5 Mg Tablet) 2.5 mg PO TID PRN PRN Reason: agitation Trazodone HCl (Trazodone Hcl 50 Mg Tablet) 50 mg PO BEDTIME MRX1 PRN PRN Reason: Insomnia Venlafaxine HCl (Venlafaxine Hcl Er 150 Mg Cap.Er.24h) 150 mg PO DAILY [facility] Last Admin: 01/13/25 09:12 Dose: 150 mg Allergies Allergies Allergy/AdvReac Type Severity Reaction Status Date / Time No Known Allergies Allergy Verified 01/09/25 22:06 Assessment & Plan Assessment & Plan (1) MDD (major depressive disorder), recurrent episode, moderate: Status: Acute Code(s): F33.1 - Major depressive disorder, recurrent, moderate (2) HTN (hypertension): Status: Acute Code(s): I10 - Essential (primary) hypertension (3) HLD (hyperlipidemia): Status: Acute Code(s): E78.5 - Hyperlipidemia, unspecified (4) RAJEEV on CPAP: Status: Acute Code(s): G47.33 - Obstructive sleep apnea (adult) (pediatric); Z99.89 - Dependence on other enabling machines and devices Plan HPI: patient is a 7.y.o , Swedish Speaking male with hx of HTN, DVT, HLD, stomach ulcer, RAJEEV, depression who was BIBA on a section 12 from [facility] d/t passive SI and depression. Patient reports left me 3-4 months ago and sicne then he has had worsening depression. Patient reports that he was at [facility] and was crying as so he was sent to ED. Report that his depression was on and off most of my life since he was 9 y.o but depressive episode is different this time and symptoms got worse. Patient reports that he has been compliant with medications but medication does not seem to work well after for a while being on them. Recently have medication changes/ dosage changes. He picked them up from pharmacy but has not yet started. reports that patient has not been doing well and has been very depressed for a long time. reports patient making statement like Well now I've got pills, I can take a bunch of pills and that's it a couple of days ago. Report that patient has anger issues for a long time. Formulation/clinical reasoning: Hospital course: 01/10/25: Abilify 2mg for severe anxiety, depression Increase Effexor up to 150mg from 75mg for depression Wellbutrin XL 300mg daily for depression/anxiety Norvasc 2.5mg daily for HTN Atorvastatin 10mg daily Eliquis 5mg BID. Naproxin 500mg BID for pain. Aricept 5mg daily for cognitive impairment 01/11/25: Patient reports that he slept better with the mask of CPAP was adjusted better last night. Report better appetite and that he eats more than usually does. Report anxiety and depression have slighly improve. However, he is tearful when this provider and SW talked to him at dining table regarding treatment/discharge. He easily gets anxious and overwhelmed and becomes tearful when emotional. Report just talking like this he feels his anxiety and depression got to his chest. He thinks the best for him is exercise. He was reluctant to sign CV but made up his mind to stay for another week for medication management and monitor for his mood. Possible discharge next week on or Tuesday. Patient also signed consent to release information to daughter and . Also discuss with patient to start on small dose of Ativan to see it is helpful to control his severe anxitey while titrating other medications. Per nursing, patient took first dose and it is helpful. He does not express SI/SIB/HI/AVH but anxious and depression in high level, can be tearful at times. Visible, attended groups, slept for 7 hours. Medication compliant, mood can be up and down. Elevated BP. Continue to monitor. Encourage fluid, BUN 28. 01/13: Continue current tx plan 01/12: continue current tx plan Plan Patient on 5 minute checks for safety at night- CPAP. 15 while awake. Admitted to S1. signed CV on 01/11/25. Tentative discharge next week on or Tuesday. Work with treatment team to do collateral. Team to reach out [place] [address] regarding coming court day on Tuesday01/14/25 Contact the hospitalist regarding hospitalist consultation on admission: seen by hospitalist on 01/10/25. Utox and BAL negative. EKG Unremarkable in the ED Lab results on 01/10: unremarkable. BP elevated. Reason for continued inpatient stay Substantial Risk for: med/psych decompensation Time Spent With Patient Time: Total time managing care of this patient today ____ minutes.
[2025-01-13 20:00] VITALS: BP 187/82; PULSE 89; RESP 16; TEMP 36.9; O2SAT 98
[2025-01-13 23:29] VITALS: PULSE 72; RESP 20; O2SAT 97
[2025-01-14 08:00] VITALS: BP 139/76; PULSE 94; RESP 16; TEMP 36.2; O2SAT 99
[2025-01-14] MEDS: Venlafaxine HCl ER 150 MG CAP.ER.24H PO (09:01)
[2025-01-14] MEDS: buPROPion HCl XL 300 MG TAB.ER.24H PO (09:06)
--- NOTE | 2025-01-14 12:30 | P.PNPSI_ITS ---
Subjective Subjective Date of Service: 01/14/25 Reason For Visit: decompensation Subjective Notes: Conditional Voluntary Interim History: Pt reports he feels calmer, more relax. He initially was mildly irritable, stating if he was suicidal he wouldn't be future oriented and thinking about traveling abroad. He reports relationship with was very disconnected for decades. His SBP has been high 170-180s. He is currently on amlodipine 2.5mg po daily- may need increase of dose. No VH/AH. No delusions. Mental Status Exam Mental Status Exam Narrative: Appearance: good eye contact, fair grooming Attitude:Cooperative Speech: Fluent and wnl in regard to volume, tone, prosody Motor activity: Calm and without any tics, tremors or dyskinesias. Steady gait Mood: as noted above Affect: blunted Thought process: goal directed and without evidence of formal thought disorder Thought content: as noted above. Future oriented Perception: Denies AH/VH and does not appear to respond to internal stimuli Alert/oriented in all spheres Cognition grossly intact Insight: intact Judgment: intact Diagnostics Vital Signs (24Hr): Vital Signs - 24 hr 01/13/25 20:00 01/13/25 23:29 01/14/25 08:00 Temperature 98.4 F 97.1 F Pulse Rate 89 94 Respiratory Rate 16 20 16 Blood Pressure 187/82 H 139/76 Pulse Oximetry 98 99 Oxygen Delivery Method Room Air Room Air BMI result Body Mass Index 25.2 Labs 01/10/25 07:20 Imaging Radiology Impressions: ITS Impressions Thyroid Ultrasound 01/11/25 16:57 IMPRESSION: Subcentimeter right thyroid nodules as described. According to ACR TI-RADS guidelines, no further follow-up is required. ACR TI-RADS Guidelines TR1 (0 points): Benign. No follow-up or biopsy required TR2 (2 points): Not Suspicious. No biopsy or follow up indicated TR3 (3 points): Mildly Suspicious. FNA if >= 2.5 cm, Follow if >= 1.5 cm TR4 (4-6 points): Moderately Suspicious. FNA if >= 1.5 cm, Follow if >= 1.0 cm TR5 (>=7 points): Highly Suspicious. FNA if >= 1.0 cm, Follow if >= 0.5 cm Electronically signed by: Alan Allen MD 01/14/2025 07:12 AM [facility] [place] Medications Current Medications Acetaminophen (Acetaminophen 325 Mg Tablet) 650 mg PO Q6H PRN PRN Reason: Headache/Pain, Scale 1-10 Al Hydroxide/Mg Hydroxide (Magnesium Hydrox/Alum Hydrox 30 Ml Oral.Susp) 30 ml PO Q6H PRN PRN Reason: Heartburn/Nausea Amlodipine Besylate (Amlodipine Besylate 2.5 Mg Tablet) 2.5 mg PO DAILY [facility]; Protocol Last Admin: 01/14/25 09:01 Dose: 2.5 mg Apixaban (Apixaban 5 Mg Tablet) 5 mg PO BID [facility] Last Admin: 01/14/25 09:01 Dose: 5 mg Aripiprazole (Aripiprazole 2 Mg Tablet) 2 mg PO DAILY [facility] Last Admin: 01/14/25 08:59 Dose: 2 mg Atorvastatin Calcium (Atorvastatin Calcium 10 Mg Tablet) 10 mg PO DAILY [facility] Last Admin: 01/14/25 09:01 Dose: 10 mg Bupropion HCl (Bupropion Hcl Xl 300 Mg Tab.Er.24h) 300 mg PO DAILY [facility] Last Admin: 01/14/25 09:06 Dose: 300 mg Donepezil HCl (Donepezil Hcl 5 Mg Tablet) 5 mg PO DAILY [facility] Last Admin: 01/14/25 09:01 Dose: 5 mg Lidocaine (Lidocaine 5 % Ointment 35 Gm) 1 appl TOPICAL Q6H PRN; Protocol PRN Reason: Right shoulder pain Lorazepam (Lorazepam 0.5 Mg Tablet) 0.25 mg PO BID [facility] Last Admin: 01/14/25 09:02 Dose: 0.25 mg Magnesium Hydroxide (Milk Of Magnesia 30 Ml Oral.Susp) 30 ml PO DAILY PRN PRN Reason: Constipation Naproxen (Naproxen 500 Mg Tablet) 500 mg PO BID [facility] Last Admin: 01/14/25 08:59 Dose: 500 mg Nicotine (Nicotine 21 Mg Patch.Td24) 21 mg TRANSDERMA DAILY PRN PRN Reason: smoking cessation Nicotine Polacrilex (Nicotine Polacrilex 2 Mg Gum) 4 mg BUCCAL Q2H PRN PRN Reason: Nicotine Cravings Olanzapine (Olanzapine 2.5 Mg Tablet) 2.5 mg PO TID PRN PRN Reason: agitation Trazodone HCl (Trazodone Hcl 50 Mg Tablet) 50 mg PO BEDTIME MRX1 PRN PRN Reason: Insomnia Venlafaxine HCl (Venlafaxine Hcl Er 150 Mg Cap.Er.24h) 150 mg PO DAILY [facility] Last Admin: 01/14/25 09:01 Dose: 150 mg Allergies Allergies Allergy/AdvReac Type Severity Reaction Status Date / Time No Known Allergies Allergy Verified 01/09/25 22:06 Assessment & Plan Assessment & Plan (1) MDD (major depressive disorder), recurrent episode, moderate: Status: Acute Code(s): F33.1 - Major depressive disorder, recurrent, moderate (2) HTN (hypertension): Status: Acute Code(s): I10 - Essential (primary) hypertension (3) HLD (hyperlipidemia): Status: Acute Code(s): E78.5 - Hyperlipidemia, unspecified (4) RAJEEV on CPAP: Status: Acute Code(s): G47.33 - Obstructive sleep apnea (adult) (pediatric); Z99.89 - Dependence on other enabling machines and devices Plan HPI: patient is a 7.y.o , Tajik Speaking male with hx of HTN, DVT, HLD, stomach ulcer, RAJEEV, depression who was BIBA on a section 12 from [facility] d/t passive SI and depression. Patient reports left me 3-4 months ago and sicne then he has had worsening depression. Patient reports that he was at [facility] and was crying as so he was sent to ED. Report that his depression was on and off most of my life since he was 9 y.o but depressive episode is different this time and symptoms got worse. Patient reports that he has been compliant with medications but medication does not seem to work well after for a while being on them. Recently have medication changes/ dosage changes. He picked them up from pharmacy but has not yet started. reports that patient has not been doing well and has been very depressed for a long time. reports patient making statement like Well now I've got pills, I can take a bunch of pills and that's it a couple of days ago. Report that patient has anger issues for a long time. Formulation/clinical reasoning: Hospital course: 01/10/25: Abilify 2mg for severe anxiety, depression Increase Effexor up to 150mg from 75mg for depression Wellbutrin XL 300mg daily for depression/anxiety Norvasc 2.5mg daily for HTN Atorvastatin 10mg daily Eliquis 5mg BID. Naproxin 500mg BID for pain. Aricept 5mg daily for cognitive impairment 01/11/25: Patient reports that he slept better with the mask of CPAP was adjusted better last night. Report better appetite and that he eats more than usually does. Report anxiety and depression have slighly improve. However, he is tearful when this provider and SW talked to him at dining table regarding treatment/discharge. He easily gets anxious and overwhelmed and becomes tearful when emotional. Report just talking like this he feels his anxiety and depression got to his chest. He thinks the best for him is exercise. He was reluctant to sign CV but made up his mind to stay for another week for medication management and monitor for his mood. Possible discharge next week on or Tuesday. Patient also signed consent to release information to daughter and . Also discuss with patient to start on small dose of Ativan to see it is helpful to control his severe anxitey while titrating other medications. Per nursing, patient took first dose and it is helpful. He does not express SI/SIB/HI/AVH but anxious and depression in high level, can be tearful at times. Visible, attended groups, slept for 7 hours. Medication compliant, mood can be up and down. Elevated BP. Continue to monitor. Encourage fluid, BUN 28. 01/13: Continue current tx plan 01/12: continue current tx plan 01/14 no SI, mood as improved per pt. SBP elevated 170-180 on amlodipine 2.5mg po daily- may need increase dose of amlodipine. Plan Patient on 5 minute checks for safety at night- CPAP. 15 while awake. Admitted to S1. signed CV on 01/11/25. Tentative discharge next week on or Tuesday. Work with treatment team to do collateral. Team to reach out [place] [address] regarding coming court day on Tuesday01/14/25 Contact the hospitalist regarding hospitalist consultation on admission: seen by hospitalist on 01/10/25. Utox and BAL negative. EKG Unremarkable in the ED Lab results on 01/10: unremarkable. BP elevated. Reason for continued inpatient stay Substantial Risk for: inability to function Time Spent With Patient Time: Total time managing care of this patient today ____ minutes.
[2025-01-14 20:00] VITALS: BP 163/79; PULSE 85; RESP 16; TEMP 36.6; O2SAT 98
[2025-01-14 22:46] VITALS: PULSE 82; RESP 19; O2SAT 98
[2025-01-15 08:00] VITALS: BP 145/75; PULSE 92; RESP 16; TEMP 36.7; O2SAT 99
[2025-01-15] MEDS: buPROPion HCl XL 300 MG TAB.ER.24H PO (08:22)
[2025-01-15] MEDS: Venlafaxine HCl ER 150 MG CAP.ER.24H PO (08:23)
[2025-01-15 08:24] VITALS: BP 145/75
--- NOTE | 2025-01-15 10:29 | PC.RT ---
Spoke with RN Mamta re: pt cpap settings. After talking to [employer] one of our DME companies, he is no longer active with the company. He did have a cpap machine 2017. Pt was out in [place] when this machine was given to him. His old setting from 2017 are Auto Cpap 4-18 and he is currently on our machine on Auto Cpap 5-20. pt is complaining per RN about being groggy in the morning. Not sure if it is from meds, or he will need another outpatient sleep study and possible getting a newer script for a cpap machine. pt would need to follow up with his pcp as well.
[2025-01-15 19:42] VITALS: BP 152/68; PULSE 89; RESP 18; TEMP 37.2; O2SAT 97
--- NOTE | 2025-01-15 19:52 | P.PNPSI_ITS ---
Subjective Subjective Date of Service: 01/15/25 Reason For Visit: decompensation Subjective Notes: Conditional Voluntary Interim History: Pt continues to report that he feels less depressed. No SI/HI. He wished he had chanced to work things out with , but reports she is not open to that. He is taking medications as prescribed. Increase amlodipine due to elevated SBP. continue current medications. He is visible, attends groups. No behavioral concerns. Mental Status Exam Mental Status Exam Narrative: Appearance: good eye contact, fair grooming Attitude:Cooperative Speech: Fluent and wnl in regard to volume, tone, prosody Motor activity: Calm and without any tics, tremors or dyskinesias. Steady gait Mood: as noted above Affect: blunted Thought process: goal directed and without evidence of formal thought disorder Thought content: as noted above. Future oriented Perception: Denies AH/VH and does not appear to respond to internal stimuli Alert/oriented in all spheres Cognition grossly intact Insight: intact Judgment: intact Diagnostics Vital Signs (24Hr): Vital Signs - 24 hr 01/14/25 20:00 01/14/25 22:46 01/15/25 08:00 Temperature 98 F 98.1 F Pulse Rate 85 92 Respiratory Rate 16 19 16 Blood Pressure 163/79 H 145/75 H Pulse Oximetry 98 99 Oxygen Delivery Method Room Air Room Air 01/15/25 08:24 01/15/25 19:42 Temperature 99 F Pulse Rate 89 Respiratory Rate 18 Blood Pressure 145/75 H 152/68 H Pulse Oximetry 97 Oxygen Delivery Method Room Air BMI result Body Mass Index 25.2 Labs 01/10/25 07:20 Imaging Radiology Impressions: ITS Impressions Thyroid Ultrasound 01/11/25 16:57 IMPRESSION: Subcentimeter right thyroid nodules as described. According to ACR TI-RADS guidelines, no further follow-up is required. ACR TI-RADS Guidelines TR1 (0 points): Benign. No follow-up or biopsy required TR2 (2 points): Not Suspicious. No biopsy or follow up indicated TR3 (3 points): Mildly Suspicious. FNA if >= 2.5 cm, Follow if >= 1.5 cm TR4 (4-6 points): Moderately Suspicious. FNA if >= 1.5 cm, Follow if >= 1.0 cm TR5 (>=7 points): Highly Suspicious. FNA if >= 1.0 cm, Follow if >= 0.5 cm Electronically signed by: Alan Allen MD 01/14/2025 07:12 AM [facility] Medications Medications Current Medications Acetaminophen (Acetaminophen 325 Mg Tablet) 650 mg PO Q6H PRN PRN Reason: Headache/Pain, Scale 1-10 Al Hydroxide/Mg Hydroxide (Magnesium Hydrox/Alum Hydrox 30 Ml Oral.Susp) 30 ml PO Q6H PRN PRN Reason: Heartburn/Nausea Amlodipine Besylate (Amlodipine Besylate 2.5 Mg Tablet) 2.5 mg PO DAILY [facility]; Protocol Last Admin: 01/15/25 08:24 Dose: 2.5 mg Apixaban (Apixaban 5 Mg Tablet) 5 mg PO BID [facility] Last Admin: 01/15/25 08:23 Dose: 5 mg Aripiprazole (Aripiprazole 2 Mg Tablet) 2 mg PO DAILY [facility] Last Admin: 01/15/25 08:24 Dose: 2 mg Atorvastatin Calcium (Atorvastatin Calcium 10 Mg Tablet) 10 mg PO DAILY [facility] Last Admin: 01/15/25 08:24 Dose: 10 mg Bupropion HCl (Bupropion Hcl Xl 300 Mg Tab.Er.24h) 300 mg PO DAILY [facility] Last Admin: 01/15/25 08:22 Dose: 300 mg Donepezil HCl (Donepezil Hcl 5 Mg Tablet) 5 mg PO DAILY [facility] Last Admin: 01/15/25 08:23 Dose: 5 mg Lidocaine (Lidocaine 5 % Ointment 35 Gm) 1 appl TOPICAL Q6H PRN; Protocol PRN Reason: Right shoulder pain Lorazepam (Lorazepam 0.5 Mg Tablet) 0.25 mg PO BID [facility] Last Admin: 01/15/25 08:23 Dose: 0.25 mg Magnesium Hydroxide (Milk Of Magnesia 30 Ml Oral.Susp) 30 ml PO DAILY PRN PRN Reason: Constipation Naproxen (Naproxen 500 Mg Tablet) 500 mg PO BID [facility] Last Admin: 01/15/25 08:22 Dose: 500 mg Nicotine (Nicotine 21 Mg Patch.Td24) 21 mg TRANSDERMA DAILY PRN PRN Reason: smoking cessation Nicotine Polacrilex (Nicotine Polacrilex 2 Mg Gum) 4 mg BUCCAL Q2H PRN PRN Reason: Nicotine Cravings Olanzapine (Olanzapine 2.5 Mg Tablet) 2.5 mg PO TID PRN PRN Reason: agitation Trazodone HCl (Trazodone Hcl 50 Mg Tablet) 50 mg PO BEDTIME MRX1 PRN PRN Reason: Insomnia Venlafaxine HCl (Venlafaxine Hcl Er 150 Mg Cap.Er.24h) 150 mg PO DAILY [place] Last Admin: 01/15/25 08:23 Dose: 150 mg Allergies Allergies Allergy/AdvReac Type Severity Reaction Status Date / Time No Known Allergies Allergy Verified 01/09/25 22:06 Assessment & Plan Assessment & Plan (1) MDD (major depressive disorder), recurrent episode, moderate: Status: Acute Code(s): F33.1 - Major depressive disorder, recurrent, moderate (2) HTN (hypertension): Status: Acute Code(s): I10 - Essential (primary) hypertension (3) HLD (hyperlipidemia): Status: Acute Code(s): E78.5 - Hyperlipidemia, unspecified (4) RAJEEV on CPAP: Status: Acute Code(s): G47.33 - Obstructive sleep apnea (adult) (pediatric); Z99.89 - Dependence on other enabling machines and devices Plan HPI: patient is a 7.y.o , Spanish Speaking male with hx of HTN, DVT, HLD, stomach ulcer, RAJEEV, depression who was BIBA on a section 12 from [facility] d/t passive SI and depression. Patient reports left me 3-4 months ago and sicne then he has had worsening depression. Patient reports that he was at [facility] and was crying as so he was sent to ED. Report that his depression was on and off most of my life since he was 9 y.o but depressive episode is different this time and symptoms got worse. Patient reports that he has been compliant with medications but medication does not seem to work well after for a while being on them. Recently have medication changes/ dosage changes. He picked them up from pharmacy but has not yet started. reports that patient has not been doing well and has been very depressed for a long time. reports patient making statement like Well now I've got pills, I can take a bunch of pills and that's it a couple of days ago. Report that patient has anger issues for a long time. Formulation/clinical reasoning: Hospital course: 01/10/25: Abilify 2mg for severe anxiety, depression Increase Effexor up to 150mg from 75mg for depression Wellbutrin XL 300mg daily for depression/anxiety Norvasc 2.5mg daily for HTN Atorvastatin 10mg daily Eliquis 5mg BID. Naproxin 500mg BID for pain. Aricept 5mg daily for cognitive impairment 01/11/25: Patient reports that he slept better with the mask of CPAP was adjusted better last night. Report better appetite and that he eats more than usually does. Report anxiety and depression have slighly improve. However, he is tearful when this provider and SW talked to him at dining table regarding treatment/discharge. He easily gets anxious and overwhelmed and becomes tearful when emotional. Report just talking like this he feels his anxiety and depression got to his chest. He thinks the best for him is exercise. He was reluctant to sign CV but made up his mind to stay for another week for medication management and monitor for his mood. Possible discharge next week on or Tuesday. Patient also signed consent to release information to daughter and . Also discuss with patient to start on small dose of Ativan to see it is helpful to control his severe anxitey while titrating other medications. Per nursing, patient took first dose and it is helpful. He does not express SI/SIB/HI/AVH but anxious and depression in high level, can be tearful at times. Visible, attended groups, slept for 7 hours. Medication compliant, mood can be up and down. Elevated BP. Continue to monitor. Encourage fluid, BUN 28. 01/13: Continue current tx plan 01/12: continue current tx plan 01/14 continue tx. monitor BP 01/15 increase amlodipine 5mg po daily. continue psych meds. Plan Patient on 5 minute checks for safety at night- CPAP. 15 while awake. Admitted to S1. signed CV on 01/11/25. Tentative discharge next week on or Tuesday. Work with treatment team to do collateral. Team to reach out [place] [address] regarding coming court day on Tuesday01/14/25 Contact the hospitalist regarding hospitalist consultation on admission: seen by hospitalist on 01/10/25. Utox and BAL negative. EKG Unremarkable in the ED Lab results on 01/10: unremarkable. BP elevated. Reason for continued inpatient stay Substantial Risk for: inability to function Time Spent With Patient Time: Total time managing care of this patient today ____ minutes.
[2025-01-15 21:56] VITALS: PULSE 86; RESP 26; O2SAT 96
[2025-01-16 08:00] VITALS: BP 142/69; PULSE 90; RESP 17; TEMP 36.1
[2025-01-16] MEDS: Venlafaxine HCl ER 150 MG CAP.ER.24H PO (08:37)
[2025-01-16] MEDS: buPROPion HCl XL 300 MG TAB.ER.24H PO (08:38)
--- NOTE | 2025-01-16 19:41 | P.PNPSI_ITS ---
Subjective Subjective Date of Service: 01/16/25 Reason For Visit: decompensation Subjective Notes: Conditional Voluntary Interim History: Pt continues to report that he is much less depressed. No SI/HI. He also reports feeling less anxious. He does report some dizziness. No Ortho VS. continue current medications. He is visible, attends groups. No behavioral concerns. can pick him up on Tuesday. Medication Compliance: Yes Review of Systems Review of Systems Denies shortness of breath, chest pain, abdominal pain, dysuria, muscle aches, fever or chills Yes all other systems are reviewed and are negative Diagnostics Vital Signs (24Hr): Vital Signs - 24 hr 01/15/25 19:42 01/15/25 21:56 01/16/25 08:00 Temperature 99 F 97 F Pulse Rate 89 90 Respiratory Rate 18 26 H 17 Blood Pressure 152/68 H 142/69 H Pulse Oximetry 97 Oxygen Delivery Method Room Air BMI result Body Mass Index 25.2 Labs 01/10/25 07:20 Imaging Radiology Impressions: ITS Impressions Thyroid Ultrasound 01/11/25 16:57 IMPRESSION: Subcentimeter right thyroid nodules as described. According to ACR TI-RADS guidelines, no further follow-up is required. ACR TI-RADS Guidelines TR1 (0 points): Benign. No follow-up or biopsy required TR2 (2 points): Not Suspicious. No biopsy or follow up indicated TR3 (3 points): Mildly Suspicious. FNA if >= 2.5 cm, Follow if >= 1.5 cm TR4 (4-6 points): Moderately Suspicious. FNA if >= 1.5 cm, Follow if >= 1.0 cm TR5 (>=7 points): Highly Suspicious. FNA if >= 1.0 cm, Follow if >= 0.5 cm Electronically signed by: Alan Allen MD 01/14/2025 07:12 AM [facility] Medications Medications Current Medications Acetaminophen (Acetaminophen 325 Mg Tablet) 650 mg PO Q6H PRN PRN Reason: Headache/Pain, Scale 1-10 Last Admin: 01/16/25 16:03 Dose: 650 mg Al Hydroxide/Mg Hydroxide (Magnesium Hydrox/Alum Hydrox 30 Ml Oral.Susp) 30 ml PO Q6H PRN PRN Reason: Heartburn/Nausea Amlodipine Besylate (Amlodipine Besylate 5 Mg Tablet) 5 mg PO DAILY [facility]; Protocol Last Admin: 01/16/25 08:37 Dose: 5 mg Apixaban (Apixaban 5 Mg Tablet) 5 mg PO BID [facility] Last Admin: 01/16/25 08:37 Dose: 5 mg Aripiprazole (Aripiprazole 2 Mg Tablet) 2 mg PO DAILY [facility] Last Admin: 01/16/25 08:37 Dose: 2 mg Atorvastatin Calcium (Atorvastatin Calcium 10 Mg Tablet) 10 mg PO DAILY [facility] Last Admin: 01/16/25 08:37 Dose: 10 mg Bupropion HCl (Bupropion Hcl Xl 300 Mg Tab.Er.24h) 300 mg PO DAILY [facility] Last Admin: 01/16/25 08:38 Dose: 300 mg Donepezil HCl (Donepezil Hcl 5 Mg Tablet) 5 mg PO DAILY [facility] Last Admin: 01/16/25 08:38 Dose: 5 mg Lidocaine (Lidocaine 5 % Ointment 35 Gm) 1 appl TOPICAL Q6H PRN; Protocol PRN Reason: Right shoulder pain Magnesium Hydroxide (Milk Of Magnesia 30 Ml Oral.Susp) 30 ml PO DAILY PRN PRN Reason: Constipation Naproxen (Naproxen 500 Mg Tablet) 500 mg PO BID [facility] Last Admin: 01/16/25 08:54 Dose: Not Given Nicotine (Nicotine 21 Mg Patch.Td24) 21 mg TRANSDERMA DAILY PRN PRN Reason: smoking cessation Nicotine Polacrilex (Nicotine Polacrilex 2 Mg Gum) 4 mg BUCCAL Q2H PRN PRN Reason: Nicotine Cravings Olanzapine (Olanzapine 2.5 Mg Tablet) 2.5 mg PO TID PRN PRN Reason: agitation Trazodone HCl (Trazodone Hcl 50 Mg Tablet) 50 mg PO BEDTIME MRX1 PRN PRN Reason: Insomnia Venlafaxine HCl (Venlafaxine Hcl Er 150 Mg Cap.Er.24h) 150 mg PO DAILY [facility] Last Admin: 01/16/25 08:37 Dose: 150 mg Allergies Allergies Allergy/AdvReac Type Severity Reaction Status Date / Time No Known Allergies Allergy Verified 01/09/25 22:06 Assessment & Plan Assessment & Plan (1) MDD (major depressive disorder), recurrent episode, moderate: Status: Acute Code(s): F33.1 - Major depressive disorder, recurrent, moderate (2) HTN (hypertension): Status: Acute Code(s): I10 - Essential (primary) hypertension (3) HLD (hyperlipidemia): Status: Acute Code(s): E78.5 - Hyperlipidemia, unspecified (4) RAJEEV on CPAP: Status: Acute Code(s): G47.33 - Obstructive sleep apnea (adult) (pediatric); Z99.89 - Dependence on other enabling machines and devices Plan HPI: patient is a 7.y.o , Togolese Speaking male with hx of HTN, DVT, HLD, stomach ulcer, RAJEEV, depression who was BIBA on a section 12 from [facility] d/t passive SI and depression. Patient reports left me 3-4 months ago and sicne then he has had worsening depression. Patient reports that he was at [facility] and was crying as so he was sent to ED. Report that his depression was on and off most of my life since he was 9 y.o but depressive episode is different this time and symptoms got worse. Patient reports that he has been compliant with medications but medication does not seem to work well after for a while being on them. Recently have medication changes/ dosage changes. He picked them up from pharmacy but has not yet started. reports that patient has not been doing well and has been very depressed for a long time. reports patient making statement like Well now I've got pills, I can take a bunch of pills and that's it a couple of days ago. Report that patient has anger issues for a long time. Formulation/clinical reasoning: Hospital course: 01/10/25: Abilify 2mg for severe anxiety, depression Increase Effexor up to 150mg from 75mg for depression Wellbutrin XL 300mg daily for depression/anxiety Norvasc 2.5mg daily for HTN Atorvastatin 10mg daily Eliquis 5mg BID. Naproxin 500mg BID for pain. Aricept 5mg daily for cognitive impairment 01/11/25: Patient reports that he slept better with the mask of CPAP was adjusted better last night. Report better appetite and that he eats more than usually does. Report anxiety and depression have slighly improve. However, he is tearful when this provider and SW talked to him at dining table regarding treatment/discharge. He easily gets anxious and overwhelmed and becomes tearful when emotional. Report just talking like this he feels his anxiety and depression got to his chest. He thinks the best for him is exercise. He was reluctant to sign CV but made up his mind to stay for another week for medication management and monitor for his mood. Possible discharge next week on or Tuesday. Patient also signed consent to release information to daughter and . Also discuss with patient to start on small dose of Ativan to see it is helpful to control his severe anxitey while titrating other medications. Per nursing, patient took first dose and it is helpful. He does not express SI/SIB/HI/AVH but anxious and depression in high level, can be tearful at times. Visible, attended groups, slept for 7 hours. Medication compliant, mood can be up and down. Elevated BP. Continue to monitor. Encourage fluid, BUN 28. 01/13: Continue current tx plan 01/12: continue current tx plan 01/15 continue tx. BP better with amlodipine SBP 140's Reason for continued inpatient stay Substantial Risk for: inability to function Time Spent With Patient Time: Total time managing care of this patient today ____ minutes.
[2025-01-16 20:00] VITALS: BP 176/94; PULSE 92; RESP 18; TEMP 36.8; O2SAT 99
[2025-01-17 08:00] VITALS: BP 151/69; PULSE 85; RESP 18; TEMP 36.5; O2SAT 97
[2025-01-17] MEDS: Venlafaxine HCl ER 150 MG CAP.ER.24H PO (09:29)
[2025-01-17] MEDS: buPROPion HCl XL 300 MG TAB.ER.24H PO (09:29)
[2025-01-17 14:10] VITALS: BMI 25.2
--- NOTE | 2025-01-17 14:42 | HO.PSYCHPN ---
Subjective Subjective Date of Service: 01/17/25 Reason For Visit: decompensation Subjective Notes: Conditional Voluntary Interim History: Pt sleeping through the night. He continues to denied depressed mood, anxious mood. He reports he feels much better. No SI/HI. No VH/AH. He has been visible on the unit and social with select peers. BP last night again SBP 170's- discussed increasing amlodipine to 7.5mg po daily. Mental Status Exam Mental Status Exam Narrative: Appearance: good eye contact, fair grooming Attitude:Cooperative Speech: Fluent and wnl in regard to volume, tone, prosody Motor activity: Calm and without any tics, tremors or dyskinesias. Steady gait Mood: as noted above Affect: blunted Thought process: goal directed and without evidence of formal thought disorder Thought content: as noted above. Future oriented Perception: Denies AH/VH and does not appear to respond to internal stimuli Alert/oriented in all spheres Cognition grossly intact Insight: intact Judgment: intact Diagnostics Vital Signs (24Hr): Vital Signs - 24 hr 01/16/25 20:00 01/17/25 08:00 Temperature 98.2 F 97.7 F Pulse Rate 92 85 Respiratory Rate 18 18 Blood Pressure 176/94 H 151/69 H Pulse Oximetry 99 97 Oxygen Delivery Method Room Air BMI result Body Mass Index 25.2 Labs 01/10/25 07:20 Imaging Radiology Impressions: ITS Impressions Thyroid Ultrasound 01/11/25 16:57 IMPRESSION: Subcentimeter right thyroid nodules as described. According to ACR TI-RADS guidelines, no further follow-up is required. ACR TI-RADS Guidelines TR1 (0 points): Benign. No follow-up or biopsy required TR2 (2 points): Not Suspicious. No biopsy or follow up indicated TR3 (3 points): Mildly Suspicious. FNA if >= 2.5 cm, Follow if >= 1.5 cm TR4 (4-6 points): Moderately Suspicious. FNA if >= 1.5 cm, Follow if >= 1.0 cm TR5 (>=7 points): Highly Suspicious. FNA if >= 1.0 cm, Follow if >= 0.5 cm Electronically signed by: Alan Allen MD 01/14/2025 07:12 AM [facility] Medications Medications Current Medications Acetaminophen (Acetaminophen 325 Mg Tablet) 650 mg PO Q6H PRN PRN Reason: Headache/Pain, Scale 1-10 Last Admin: 01/16/25 16:03 Dose: 650 mg Al Hydroxide/Mg Hydroxide (Magnesium Hydrox/Alum Hydrox 30 Ml Oral.Susp) 30 ml PO Q6H PRN PRN Reason: Heartburn/Nausea Amlodipine Besylate (Amlodipine Besylate 5 Mg Tablet) 5 mg PO DAILY [facility]; Protocol Last Admin: 01/17/25 09:28 Dose: 5 mg Apixaban (Apixaban 5 Mg Tablet) 5 mg PO BID [facility] Last Admin: 01/17/25 09:30 Dose: 5 mg Aripiprazole (Aripiprazole 2 Mg Tablet) 2 mg PO DAILY [facility] Last Admin: 01/17/25 09:30 Dose: 2 mg Atorvastatin Calcium (Atorvastatin Calcium 10 Mg Tablet) 10 mg PO DAILY [facility] Last Admin: 01/17/25 09:29 Dose: 10 mg Bupropion HCl (Bupropion Hcl Xl 300 Mg Tab.Er.24h) 300 mg PO DAILY [facility] Last Admin: 01/17/25 09:29 Dose: 300 mg Donepezil HCl (Donepezil Hcl 5 Mg Tablet) 5 mg PO DAILY [facility] Last Admin: 01/17/25 09:29 Dose: 5 mg Lidocaine (Lidocaine 5 % Ointment 35 Gm) 1 appl TOPICAL Q6H PRN; Protocol PRN Reason: Right shoulder pain Magnesium Hydroxide (Milk Of Magnesia 30 Ml Oral.Susp) 30 ml PO DAILY PRN PRN Reason: Constipation Naproxen (Naproxen 500 Mg Tablet) 500 mg PO BID [facility] Last Admin: 01/17/25 09:30 Dose: 500 mg Nicotine (Nicotine 21 Mg Patch.Td24) 21 mg TRANSDERMA DAILY PRN PRN Reason: smoking cessation Nicotine Polacrilex (Nicotine Polacrilex 2 Mg Gum) 4 mg BUCCAL Q2H PRN PRN Reason: Nicotine Cravings Olanzapine (Olanzapine 2.5 Mg Tablet) 2.5 mg PO TID PRN PRN Reason: agitation Trazodone HCl (Trazodone Hcl 50 Mg Tablet) 50 mg PO BEDTIME MRX1 PRN PRN Reason: Insomnia Venlafaxine HCl (Venlafaxine Hcl Er 150 Mg Cap.Er.24h) 150 mg PO DAILY [facility] Last Admin: 01/17/25 09:29 Dose: 150 mg Allergies Allergies Allergy/AdvReac Type Severity Reaction Status Date / Time No Known Allergies Allergy Verified 01/09/25 22:06 Assessment & Plan Assessment & Plan (1) MDD (major depressive disorder), recurrent episode, moderate: Status: Acute Code(s): F33.1 - Major depressive disorder, recurrent, moderate (2) HTN (hypertension): Status: Acute Code(s): I10 - Essential (primary) hypertension (3) HLD (hyperlipidemia): Status: Acute Code(s): E78.5 - Hyperlipidemia, unspecified (4) RAJEEV on CPAP: Status: Acute Code(s): G47.33 - Obstructive sleep apnea (adult) (pediatric); Z99.89 - Dependence on other enabling machines and devices Plan HPI: patient is a 7.y.o , Italian Speaking male with hx of HTN, DVT, HLD, stomach ulcer, RAJEEV, depression who was BIBA on a section 12 from [facility] d/t passive SI and depression. Patient reports left me 3-4 months ago and sicne then he has had worsening depression. Patient reports that he was at [facility] and was crying as so he was sent to ED. Report that his depression was on and off most of my life since he was 9 y.o but depressive episode is different this time and symptoms got worse. Patient reports that he has been compliant with medications but medication does not seem to work well after for a while being on them. Recently have medication changes/ dosage changes. He picked them up from pharmacy but has not yet started. reports that patient has not been doing well and has been very depressed for a long time. reports patient making statement like Well now I've got pills, I can take a bunch of pills and that's it a couple of days ago. Report that patient has anger issues for a long time. Formulation/clinical reasoning: Hospital course: 01/10/25: Abilify 2mg for severe anxiety, depression Increase Effexor up to 150mg from 75mg for depression Wellbutrin XL 300mg daily for depression/anxiety Norvasc 2.5mg daily for HTN Atorvastatin 10mg daily Eliquis 5mg BID. Naproxin 500mg BID for pain. Aricept 5mg daily for cognitive impairment 01/11/25: Patient reports that he slept better with the mask of CPAP was adjusted better last night. Report better appetite and that he eats more than usually does. Report anxiety and depression have slighly improve. However, he is tearful when this provider and SW talked to him at dining table regarding treatment/discharge. He easily gets anxious and overwhelmed and becomes tearful when emotional. Report just talking like this he feels his anxiety and depression got to his chest. He thinks the best for him is exercise. He was reluctant to sign CV but made up his mind to stay for another week for medication management and monitor for his mood. Possible discharge next week on or Tuesday. Patient also signed consent to release information to daughter and . Also discuss with patient to start on small dose of Ativan to see it is helpful to control his severe anxitey while titrating other medications. Per nursing, patient took first dose and it is helpful. He does not express SI/SIB/HI/AVH but anxious and depression in high level, can be tearful at times. Visible, attended groups, slept for 7 hours. Medication compliant, mood can be up and down. Elevated BP. Continue to monitor. Encourage fluid, BUN 28. 01/13: Continue current tx plan 01/12: continue current tx plan 01/15 continue tx. BP better with amlodipine SBP 140's 01/16 amlodipine has been increased to 5mg po daily. 01/17 continue tx. Reason for continued inpatient stay Substantial Risk for: inability to function Time Spent With Patient Time: Total time managing care of this patient today ____ minutes.
[2025-01-17 19:58] VITALS: BP 163/80; PULSE 86; TEMP 36.8; O2SAT 95
[2025-01-17 22:35] VITALS: RESP 18
--- NOTE | 2025-01-18 00:53 | PC.NURSE ---
Pt unplugged his CPAP and was standing in the vance yelling outside his room stating that 2 black men walking into the room and around my bed. Pt stated I want the people fired that did this and woke me up from a sound sleep. Pt ambulated back to into his room and was educated about the safety checks. Pt declined needing any medication for sleep or anxiety. Pt continues on 5 minute checks for safety.
[2025-01-18 08:00] VITALS: BP 131/60; PULSE 84; RESP 18; TEMP 36.7; O2SAT 94
[2025-01-18] MEDS: buPROPion HCl XL 300 MG TAB.ER.24H PO (08:18)
[2025-01-18] MEDS: Venlafaxine HCl ER 150 MG CAP.ER.24H PO (08:19)
[2025-01-18] MEDS: clonazePAM ODT 0.5 MG TAB.RAPDIS PO (12:20)
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
[2025-01-18 20:00] VITALS: BP 160/93; PULSE 98; RESP 16; TEMP 35.8; O2SAT 98
[2025-01-18 22:00] VITALS: RESP 16
--- NOTE | 2025-01-19 07:16 | P.PNPSI_ITS ---
Subjective Subjective Date of Service: 01/19/25 Reason For Visit: decompensation Interim History: met with patient. Discussed with Nursing. Overall patient reports mood is much much better than before. Denies depression or anxiety. Sleep energy and appetite difficulty improved. Attending groups and in the milieu. No Med concerns. Hopeful for discharge after the weekend. His concern regarding blood pressure elevations. Will increase Norvasc from 7.5 mg to 10 mg. Medication Compliance: Yes Side effects from medications: No Attending Groups: Yes Review of Systems Acute medical concerns: No Review of Systems Review of Systems nothing acute Mental Status Exam Mental Status Exam Narrative: Pleasant. Engaged. Casually dressed. Fair self-care. Organized. Brighter affect and less anxious. No SI. No HI. No agitation. No psychosis. insight and Judgment fair Diagnostics Vital Signs (24Hr): Vital Signs - 24 hr 01/18/25 08:00 01/18/25 20:00 Temperature 98.1 F 96.5 F L Pulse Rate 84 98 Respiratory Rate 18 16 Blood Pressure 131/60 160/93 H Pulse Oximetry 94 98 Oxygen Delivery Method Room Air Room Air BMI result Body Mass Index 25.2 Labs 01/10/25 07:20 Imaging Radiology Impressions: ITS Impressions Thyroid Ultrasound 01/11/25 16:57 IMPRESSION: Subcentimeter right thyroid nodules as described. According to ACR TI-RADS guidelines, no further follow-up is required. ACR TI-RADS Guidelines TR1 (0 points): Benign. No follow-up or biopsy required TR2 (2 points): Not Suspicious. No biopsy or follow up indicated TR3 (3 points): Mildly Suspicious. FNA if >= 2.5 cm, Follow if >= 1.5 cm TR4 (4-6 points): Moderately Suspicious. FNA if >= 1.5 cm, Follow if >= 1.0 cm TR5 (>=7 points): Highly Suspicious. FNA if >= 1.0 cm, Follow if >= 0.5 cm Electronically signed by: Alan Allen MD 01/14/2025 07:12 AM [facility] Medications Medications Current Medications Acetaminophen (Acetaminophen 325 Mg Tablet) 650 mg PO Q6H PRN PRN Reason: Headache/Pain, Scale 1-10 Last Admin: 01/16/25 16:03 Dose: 650 mg Al Hydroxide/Mg Hydroxide (Magnesium Hydrox/Alum Hydrox 30 Ml Oral.Susp) 30 ml PO Q6H PRN PRN Reason: Heartburn/Nausea Amlodipine Besylate (Amlodipine Besylate 2.5 Mg Tablet) 7.5 mg PO DAILY [facility]; Protocol Last Admin: 01/18/25 08:19 Dose: 7.5 mg Apixaban (Apixaban 5 Mg Tablet) 5 mg PO BID [facility] Last Admin: 01/18/25 20:36 Dose: 5 mg Aripiprazole (Aripiprazole 2 Mg Tablet) 2 mg PO DAILY [facility] Last Admin: 01/18/25 08:19 Dose: 2 mg Atorvastatin Calcium (Atorvastatin Calcium 10 Mg Tablet) 10 mg PO DAILY [facility] Last Admin: 01/18/25 08:18 Dose: 10 mg Bupropion HCl (Bupropion Hcl Xl 300 Mg Tab.Er.24h) 300 mg PO DAILY [facility] Last Admin: 01/18/25 08:18 Dose: 300 mg Donepezil HCl (Donepezil Hcl 5 Mg Tablet) 5 mg PO DAILY [facility] Last Admin: 01/18/25 08:18 Dose: 5 mg Lidocaine (Lidocaine 5 % Ointment 35 Gm) 1 appl TOPICAL Q6H PRN; Protocol PRN Reason: Right shoulder pain Magnesium Hydroxide (Milk Of Magnesia 30 Ml Oral.Susp) 30 ml PO DAILY PRN PRN Reason: Constipation Nicotine (Nicotine 21 Mg Patch.Td24) 21 mg TRANSDERMA DAILY PRN PRN Reason: smoking cessation Nicotine Polacrilex (Nicotine Polacrilex 2 Mg Gum) 4 mg BUCCAL Q2H PRN PRN Reason: Nicotine Cravings Olanzapine (Olanzapine 2.5 Mg Tablet) 2.5 mg PO TID PRN PRN Reason: agitation Last Admin: 01/18/25 20:39 Dose: 2.5 mg Olanzapine (Olanzapine 2.5 Mg Tablet) 2.5 mg PO Q4H PRN PRN Reason: agitation Trazodone HCl (Trazodone Hcl 50 Mg Tablet) 50 mg PO BEDTIME MRX1 PRN PRN Reason: Insomnia Last Admin: 01/18/25 20:39 Dose: 50 mg Venlafaxine HCl (Venlafaxine Hcl Er 150 Mg Cap.Er.24h) 150 mg PO DAILY [facility] Last Admin: 01/18/25 08:19 Dose: 150 mg Allergies Allergies Allergy/AdvReac Type Severity Reaction Status Date / Time No Known Allergies Allergy Verified 01/09/25 22:06 Assessment & Plan Assessment & Plan (1) MDD (major depressive disorder), recurrent episode, moderate: Status: Acute Code(s): F33.1 - Major depressive disorder, recurrent, moderate (2) HTN (hypertension): Status: Acute Code(s): I10 - Essential (primary) hypertension (3) HLD (hyperlipidemia): Status: Acute Code(s): E78.5 - Hyperlipidemia, unspecified (4) RAJEEV on CPAP: Status: Acute Code(s): G47.33 - Obstructive sleep apnea (adult) (pediatric); Z99.89 - Dependence on other enabling machines and devices Plan HPI: patient is a 7.y.o , [place] Speaking male with hx of HTN, DVT, HLD, stomach ulcer, RAJEEV, depression who was BIBA on a section [address] [facility] d/t passive SI and depression. Patient reports left me 3-4 months ago and sicne then he has had worsening depression. Patient reports that he was at [facility] and was crying as so he was sent to ED. Report that his depression was on and off most of my life since he was 9 y.o but depressive episode is different this time and symptoms got worse. Patient reports that he has been compliant with medications but medication does not seem to work well after for a while being on them. Recently have medication changes/ dosage changes. He picked them up from pharmacy but has not yet started. reports that patient has not been doing well and has been very depressed for a long time. reports patient making statement like Well now I've got pills, I can take a bunch of pills and that's it a couple of days ago. Report that patient has anger issues for a long time. Formulation/clinical reasoning: Hospital course: 01/10/25: Abilify 2mg for severe anxiety, depression Increase Effexor up to 150mg from 75mg for depression Wellbutrin XL 300mg daily for depression/anxiety Norvasc 2.5mg daily for HTN Atorvastatin 10mg daily Eliquis 5mg BID. Naproxin 500mg BID for pain. Aricept 5mg daily for cognitive impairment 01/11/25: Patient reports that he slept better with the mask of CPAP was adjusted better last night. Report better appetite and that he eats more than usually does. Report anxiety and depression have slighly improve. However, he is tearful when this provider and SW talked to him at dining table regarding treatment/discharge. He easily gets anxious and overwhelmed and becomes tearful when emotional. Report just talking like this he feels his anxiety and depression got to his chest. He thinks the best for him is exercise. He was reluctant to sign CV but made up his mind to stay for another week for medication management and monitor for his mood. Possible discharge next week on or Tuesday. Patient also signed consent to release information to daughter and . Also discuss with patient to start on small dose of Ativan to see it is helpful to control his severe anxitey while titrating other medications. Per nursing, patient took first dose and it is helpful. He does not express SI/SIB/HI/AVH but anxious and depression in high level, can be tearful at times. Visible, attended groups, slept for 7 hours. Medication compliant, mood can be up and down. Elevated BP. Continue to monitor. Encourage fluid, BUN 28. 01/13: Continue current tx plan 01/12: continue current tx plan 01/15 continue tx. BP better with amlodipine SBP 140's 01/19: increase Norvasc from 7.5 mg to 10 mg- SBP consitently over 140 Reason for continued inpatient stay Substantial Risk for: rapid decompensation Time Spent With Patient Time: Total time managing care of this patient today ____ minutes.
[2025-01-19 08:00] VITALS: BP 143/63; PULSE 90; TEMP 36.8; O2SAT 99
[2025-01-19] MEDS: buPROPion HCl XL 300 MG TAB.ER.24H PO (09:28)
[2025-01-19] MEDS: Venlafaxine HCl ER 150 MG CAP.ER.24H PO (09:28)
[2025-01-19 20:00] VITALS: BP 134/62; PULSE 86; RESP 16; TEMP 36.9; O2SAT 97
[2025-01-19 23:17] VITALS: RESP 16
--- NOTE | 2025-01-20 07:56 | HO.PSYCHPN ---
Subjective Subjective Date of Service: 01/20/25 Reason For Visit: decompensation Interim History: met with patient. Discussed with Nursing. Overall patient reports remains much better than before mood rowell. Denies depression or anxiety. Sleep energy and appetite good. Attending groups and in the milieu. No Med concerns. Hopeful for discharge after the weekend. H Medication Compliance: Yes Side effects from medications: No Attending Groups: Yes Review of Systems Acute medical concerns: No Review of Systems Review of Systems nothing acute Mental Status Exam Mental Status Exam Narrative: Pleasant. Engaged. Casually dressed. Fair self-care. Organized. Brighter affect and less anxious. No SI. No HI. No agitation. No psychosis. insight and Judgment fair Diagnostics Vital Signs (24Hr): Vital Signs - 24 hr 01/19/25 08:00 01/19/25 20:00 01/19/25 23:17 Temperature 98.2 F 98.5 F Pulse Rate 90 86 Respiratory Rate 16 16 Blood Pressure 143/63 H 134/62 Pulse Oximetry 99 97 Oxygen Delivery Method Room Air Room Air BMI result Body Mass Index 25.2 Labs 01/10/25 07:20 Imaging Radiology Impressions: ITS Impressions Thyroid Ultrasound 01/11/25 16:57 IMPRESSION: Subcentimeter right thyroid nodules as described. According to ACR TI-RADS guidelines, no further follow-up is required. ACR TI-RADS Guidelines TR1 (0 points): Benign. No follow-up or biopsy required TR2 (2 points): Not Suspicious. No biopsy or follow up indicated TR3 (3 points): Mildly Suspicious. FNA if >= 2.5 cm, Follow if >= 1.5 cm TR4 (4-6 points): Moderately Suspicious. FNA if >= 1.5 cm, Follow if >= 1.0 cm TR5 (>=7 points): Highly Suspicious. FNA if >= 1.0 cm, Follow if >= 0.5 cm Electronically signed by: Alan Allen MD 01/14/2025 07:12 AM [facility] Medications Medications Current Medications Acetaminophen (Acetaminophen 325 Mg Tablet) 650 mg PO Q6H PRN PRN Reason: Headache/Pain, Scale 1-10 Last Admin: 01/16/25 16:03 Dose: 650 mg Al Hydroxide/Mg Hydroxide (Magnesium Hydrox/Alum Hydrox 30 Ml Oral.Susp) 30 ml PO Q6H PRN PRN Reason: Heartburn/Nausea Amlodipine Besylate (Amlodipine Besylate 10 Mg Tablet) 10 mg PO DAILY [facility]; Protocol Apixaban (Apixaban 5 Mg Tablet) 5 mg PO BID [facility] Last Admin: 01/19/25 21:25 Dose: 5 mg Aripiprazole (Aripiprazole 2 Mg Tablet) 2 mg PO DAILY [facility] Last Admin: 01/19/25 09:28 Dose: 2 mg Atorvastatin Calcium (Atorvastatin Calcium 10 Mg Tablet) 10 mg PO DAILY [facility] Last Admin: 01/19/25 09:28 Dose: 10 mg Bupropion HCl (Bupropion Hcl Xl 300 Mg Tab.Er.24h) 300 mg PO DAILY [facility] Last Admin: 01/19/25 09:28 Dose: 300 mg Donepezil HCl (Donepezil Hcl 5 Mg Tablet) 5 mg PO DAILY [facility] Last Admin: 01/19/25 09:29 Dose: 5 mg Lidocaine (Lidocaine 5 % Ointment 35 Gm) 1 appl TOPICAL Q6H PRN; Protocol PRN Reason: Right shoulder pain Magnesium Hydroxide (Milk Of Magnesia 30 Ml Oral.Susp) 30 ml PO DAILY PRN PRN Reason: Constipation Nicotine (Nicotine 21 Mg Patch.Td24) 21 mg TRANSDERMA DAILY PRN PRN Reason: smoking cessation Nicotine Polacrilex (Nicotine Polacrilex 2 Mg Gum) 4 mg BUCCAL Q2H PRN PRN Reason: Nicotine Cravings Olanzapine (Olanzapine 2.5 Mg Tablet) 2.5 mg PO TID PRN PRN Reason: agitation Last Admin: 01/18/25 20:39 Dose: 2.5 mg Olanzapine (Olanzapine 2.5 Mg Tablet) 2.5 mg PO Q4H PRN PRN Reason: agitation Trazodone HCl (Trazodone Hcl 50 Mg Tablet) 50 mg PO BEDTIME MRX1 PRN PRN Reason: Insomnia Last Admin: 01/19/25 21:25 Dose: 50 mg Venlafaxine HCl (Venlafaxine Hcl Er 150 Mg Cap.Er.24h) 150 mg PO DAILY [facility] Last Admin: 01/19/25 09:28 Dose: 150 mg Allergies Allergies Allergy/AdvReac Type Severity Reaction Status Date / Time No Known Allergies Allergy Verified 01/09/25 22:06 Assessment & Plan Assessment & Plan (1) MDD (major depressive disorder), recurrent episode, moderate: Status: Acute Code(s): F33.1 - Major depressive disorder, recurrent, moderate (2) HTN (hypertension): Status: Acute Code(s): I10 - Essential (primary) hypertension (3) HLD (hyperlipidemia): Status: Acute Code(s): E78.5 - Hyperlipidemia, unspecified (4) RAJEEV on CPAP: Status: Acute Code(s): G47.33 - Obstructive sleep apnea (adult) (pediatric); Z99.89 - Dependence on other enabling machines and devices Plan HPI: patient is a 7.y.o , [place]ian Speaking male with hx of HTN, DVT, HLD, stomach ulcer, RAJEEV, depression who was BIBA on a section 12 from [facility] d/t passive SI and depression. Patient reports left me 3-4 months ago and sicne then he has had worsening depression. Patient reports that he was at [facility] and was crying as so he was sent to ED. Report that his depression was on and off most of my life since he was 9 y.o but depressive episode is different this time and symptoms got worse. Patient reports that he has been compliant with medications but medication does not seem to work well after for a while being on them. Recently have medication changes/ dosage changes. He picked them up from pharmacy but has not yet started. reports that patient has not been doing well and has been very depressed for a long time. reports patient making statement like Well now I've got pills, I can take a bunch of pills and that's it a couple of days ago. Report that patient has anger issues for a long time. Formulation/clinical reasoning: Hospital course: 01/10/25: Abilify 2mg for severe anxiety, depression Increase Effexor up to 150mg from 75mg for depression Wellbutrin XL 300mg daily for depression/anxiety Norvasc 2.5mg daily for HTN Atorvastatin 10mg daily Eliquis 5mg BID. Naproxin 500mg BID for pain. Aricept 5mg daily for cognitive impairment 01/11/25: Patient reports that he slept better with the mask of CPAP was adjusted better last night. Report better appetite and that he eats more than usually does. Report anxiety and depression have slighly improve. However, he is tearful when this provider and SW talked to him at dining table regarding treatment/discharge. He easily gets anxious and overwhelmed and becomes tearful when emotional. Report just talking like this he feels his anxiety and depression got to his chest. He thinks the best for him is exercise. He was reluctant to sign CV but made up his mind to stay for another week for medication management and monitor for his mood. Possible discharge next week on or Tuesday. Patient also signed consent to release information to daughter and . Also discuss with patient to start on small dose of Ativan to see it is helpful to control his severe anxitey while titrating other medications. Per nursing, patient took first dose and it is helpful. He does not express SI/SIB/HI/AVH but anxious and depression in high level, can be tearful at times. Visible, attended groups, slept for 7 hours. Medication compliant, mood can be up and down. Elevated BP. Continue to monitor. Encourage fluid, BUN 28. 01/13: Continue current tx plan 01/12: continue current tx plan 01/15 continue tx. BP better with amlodipine SBP 140's 01/19: increase Norvasc from 7.5 mg to 10 mg- SBP consitently over 140 01/20- no changes Reason for continued inpatient stay Substantial Risk for: rapid decompensation Time Spent With Patient Time: Total time managing care of this patient today ____ minutes.
[2025-01-20 08:00] VITALS: BP 133/60; PULSE 89; RESP 16; TEMP 36.7; O2SAT 99
[2025-01-20] MEDS: buPROPion HCl XL 300 MG TAB.ER.24H PO (08:39)
[2025-01-20] MEDS: Venlafaxine HCl ER 150 MG CAP.ER.24H PO (08:42)
[2025-01-20 20:00] VITALS: BP 135/61; PULSE 97; RESP 18; TEMP 36.8; O2SAT 97
[2025-01-21 07:58] VITALS: BP 140/67; PULSE 78; RESP 16; TEMP 36.4; O2SAT 94
[2025-01-21] MEDS: buPROPion HCl XL 300 MG TAB.ER.24H PO (08:41)
[2025-01-21] MEDS: Venlafaxine HCl ER 150 MG CAP.ER.24H PO (08:41)
--- NOTE | 2025-01-21 08:59 | HO.PSYCHPN ---
Subjective Subjective Date of Service: 01/21/25 Reason For Visit: decompensation Subjective Notes: Conditional Voluntary Interim History: Pt sleeping through the night. He reports he has not been feeling depressed late, glad medications are working as he does not think talk therapy was very effective. He is looking forward to be discharged tomorrow. His SBP more stable in 130-140's. No chest pain. No dizziness. He does report sleep medication-trazodone makes him feel groggy in the morning next day. Per nursing, can be irritable and demanding at times, but redirectable. No behavioral concerns. Mental Status Exam Mental Status Exam Narrative: Appearance: good eye contact, fair grooming Attitude:Cooperative Speech: Fluent and wnl in regard to volume, tone, prosody Motor activity: Calm and without any tics, tremors or dyskinesias. Steady gait Mood: as noted above Affect: blunted Thought process: goal directed and without evidence of formal thought disorder Thought content: as noted above. Future oriented Perception: Denies AH/VH and does not appear to respond to internal stimuli Alert/oriented in all spheres Cognition grossly intact Insight: intact- poor Judgment: intact- poor Diagnostics Vital Signs (24Hr): Vital Signs - 24 hr 01/20/25 20:00 01/21/25 07:58 Temperature 98.3 F 97.6 F Pulse Rate 97 78 Respiratory Rate 18 16 Blood Pressure 135/61 140/67 H Pulse Oximetry 97 94 Oxygen Delivery Method Room Air Room Air BMI result Body Mass Index 25.2 Labs 01/10/25 07:20 Imaging Radiology Impressions: ITS Impressions Thyroid Ultrasound 01/11/25 16:57 IMPRESSION: Subcentimeter right thyroid nodules as described. According to ACR TI-RADS guidelines, no further follow-up is required. ACR TI-RADS Guidelines TR1 (0 points): Benign. No follow-up or biopsy required TR2 (2 points): Not Suspicious. No biopsy or follow up indicated TR3 (3 points): Mildly Suspicious. FNA if >= 2.5 cm, Follow if >= 1.5 cm TR4 (4-6 points): Moderately Suspicious. FNA if >= 1.5 cm, Follow if >= 1.0 cm TR5 (>=7 points): Highly Suspicious. FNA if >= 1.0 cm, Follow if >= 0.5 cm Electronically signed by: Alan Allen MD 01/14/2025 07:12 AM [facility] [place], [place] Medications Medications Current Medications Acetaminophen (Acetaminophen 325 Mg Tablet) 650 mg PO Q6H PRN PRN Reason: Headache/Pain, Scale 1-10 Last Admin: 01/16/25 16:03 Dose: 650 mg Al Hydroxide/Mg Hydroxide (Magnesium Hydrox/Alum Hydrox 30 Ml Oral.Susp) 30 ml PO Q6H PRN PRN Reason: Heartburn/Nausea Amlodipine Besylate (Amlodipine Besylate 10 Mg Tablet) 10 mg PO DAILY [facility]; Protocol Last Admin: 01/21/25 08:41 Dose: 10 mg Apixaban (Apixaban 5 Mg Tablet) 5 mg PO BID [facility] Last Admin: 01/21/25 08:42 Dose: 5 mg Aripiprazole (Aripiprazole 2 Mg Tablet) 2 mg PO DAILY [facility] Last Admin: 01/21/25 08:41 Dose: 2 mg Atorvastatin Calcium (Atorvastatin Calcium 10 Mg Tablet) 10 mg PO DAILY [facility] Last Admin: 01/21/25 08:42 Dose: 10 mg Bupropion HCl (Bupropion Hcl Xl 300 Mg Tab.Er.24h) 300 mg PO DAILY [facility] Last Admin: 01/21/25 08:41 Dose: 300 mg Donepezil HCl (Donepezil Hcl 5 Mg Tablet) 5 mg PO DAILY [facility] Last Admin: 01/21/25 08:41 Dose: 5 mg Lidocaine (Lidocaine 5 % Ointment 35 Gm) 1 appl TOPICAL Q6H PRN; Protocol PRN Reason: Right shoulder pain Magnesium Hydroxide (Milk Of Magnesia 30 Ml Oral.Susp) 30 ml PO DAILY PRN PRN Reason: Constipation Nicotine (Nicotine 21 Mg Patch.Td24) 21 mg TRANSDERMA DAILY PRN PRN Reason: smoking cessation Nicotine Polacrilex (Nicotine Polacrilex 2 Mg Gum) 4 mg BUCCAL Q2H PRN PRN Reason: Nicotine Cravings Olanzapine (Olanzapine 2.5 Mg Tablet) 2.5 mg PO TID PRN PRN Reason: agitation Last Admin: 01/20/25 20:17 Dose: 2.5 mg Olanzapine (Olanzapine 2.5 Mg Tablet) 2.5 mg PO Q4H PRN PRN Reason: agitation Trazodone HCl (Trazodone Hcl 50 Mg Tablet) 50 mg PO BEDTIME MRX1 PRN PRN Reason: Insomnia Last Admin: 01/20/25 20:15 Dose: 50 mg Venlafaxine HCl (Venlafaxine Hcl Er 150 Mg Cap.Er.24h) 150 mg PO DAILY [facility] Last Admin: 01/21/25 08:41 Dose: 150 mg Allergies Allergies Allergy/AdvReac Type Severity Reaction Status Date / Time No Known Allergies Allergy Verified 01/09/25 22:06 Assessment & Plan Assessment & Plan (1) MDD (major depressive disorder), recurrent episode, moderate: Status: Acute Code(s): F33.1 - Major depressive disorder, recurrent, moderate (2) HTN (hypertension): Status: Acute Code(s): I10 - Essential (primary) hypertension (3) HLD (hyperlipidemia): Status: Acute Code(s): E78.5 - Hyperlipidemia, unspecified (4) RAJEEV on CPAP: Status: Acute Code(s): G47.33 - Obstructive sleep apnea (adult) (pediatric); Z99.89 - Dependence on other enabling machines and devices Plan HPI: patient is a 7.y.o , [place] Citizen Speaking male with hx of HTN, DVT, HLD, stomach ulcer, RAJEEV, depression who was BIBA on a section 12 from [facility] d/t passive SI and depression. Patient reports left me 3-4 months ago and sicne then he has had worsening depression. Patient reports that he was at [facility] and was crying as so he was sent to ED. Report that his depression was on and off most of my life since he was 9 y.o but depressive episode is different this time and symptoms got worse. Patient reports that he has been compliant with medications but medication does not seem to work well after for a while being on them. Recently have medication changes/ dosage changes. He picked them up from pharmacy but has not yet started. reports that patient has not been doing well and has been very depressed for a long time. reports patient making statement like Well now I've got pills, I can take a bunch of pills and that's it a couple of days ago. Report that patient has anger issues for a long time. Formulation/clinical reasoning: Hospital course: 01/10/25: Abilify 2mg for severe anxiety, depression Increase Effexor up to 150mg from 75mg for depression Wellbutrin XL 300mg daily for depression/anxiety Norvasc 2.5mg daily for HTN Atorvastatin 10mg daily Eliquis 5mg BID. Naproxin 500mg BID for pain. Aricept 5mg daily for cognitive impairment 01/11/25: Patient reports that he slept better with the mask of CPAP was adjusted better last night. Report better appetite and that he eats more than usually does. Report anxiety and depression have slighly improve. However, he is tearful when this provider and SW talked to him at dining table regarding treatment/discharge. He easily gets anxious and overwhelmed and becomes tearful when emotional. Report just talking like this he feels his anxiety and depression got to his chest. He thinks the best for him is exercise. He was reluctant to sign CV but made up his mind to stay for another week for medication management and monitor for his mood. Possible discharge next week on or Tuesday. Patient also signed consent to release information to daughter and . Also discuss with patient to start on small dose of Ativan to see it is helpful to control his severe anxitey while titrating other medications. Per nursing, patient took first dose and it is helpful. He does not express SI/SIB/HI/AVH but anxious and depression in high level, can be tearful at times. Visible, attended groups, slept for 7 hours. Medication compliant, mood can be up and down. Elevated BP. Continue to monitor. Encourage fluid, BUN 28. 01/13: Continue current tx plan 01/12: continue current tx plan 01/15 continue tx. BP better with amlodipine SBP 140's 01/19: increase Norvasc from 7.5 mg to 10 mg- SBP consistently over 140 01/20- no changes 01/21- continues to denied suicidal or homicidal ideation. reports less depressed. SBP more stable 130-140's on amlodipine 10mg po daily. plan for d/c 01/22/2025. Reason for continued inpatient stay Substantial Risk for: inability to function Time Spent With Patient Time: Total time managing care of this patient today ____ minutes.
--- NOTE | 2025-01-21 17:00 | PC.NURSE ---
Was asked to move his room and he became angry and was rude and swearing at the staff. He was berating them and accusing them of mistreating him.
[2025-01-21 20:00] VITALS: BP 149/68; PULSE 115; RESP 16; TEMP 37.7; O2SAT 96
[2025-01-21 22:51] VITALS: PULSE 115; RESP 22; O2SAT 96
[2025-01-22 08:00] VITALS: BP 156/70; PULSE 89; RESP 18; TEMP 36.9; O2SAT 98
[2025-01-22] MEDS: Venlafaxine HCl ER 150 MG CAP.ER.24H PO (08:39)
[2025-01-22] MEDS: buPROPion HCl XL 300 MG TAB.ER.24H PO (08:39)
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
== END 2025-01-22 13:28 | disposition home or self-care (01) | DRG 885 ==
PROVIDERS: Psychiatry & Neurology Psychiatry; Admitting Provider Psychiatry & Neurology Psychiatry; PCP Student in an Organized Health Care Education/Training Program; Visit Provider Psychiatry & Neurology Psychiatry
DX: F33.1 Major depressive disorder, recurrent, moderate (principal); R45.851 Suicidal ideations; I10 Essential (primary) hypertension; G47.33 Obstructive sleep apnea (adult) (pediatric); Z63.5 Disruption of family by separation and divorce; E78.5 Hyperlipidemia, unspecified; Z86.718 Personal history of other venous thrombosis and embolism; Z65.3 Problems related to other legal circumstances; Z79.01 Long term (current) use of anticoagulants; Z79.899 Other long term (current) drug therapy
CPT/HCPCS: 36415; 76536; 80053; 80061; 83036; 84443; 94660

== ENCOUNTER → 2025-01-09 20:15 | Outpatient (BNV) | payer MEDICARE, SELFPAY | PROVIDERS: Admitting Provider Psychiatry & Neurology Psychiatry; PCP Student in an Organized Health Care Education/Training Program; Visit Provider Nurse Practitioner Family | DX: I10 Essential (primary) hypertension (principal) | CPT/HCPCS: 99221 ==

== ENCOUNTER → 2025-01-09 20:15 | Outpatient (BNV) | payer MEDICARE, SELFPAY | PROVIDERS: Admitting Provider Psychiatry & Neurology Psychiatry; PCP Student in an Organized Health Care Education/Training Program; Visit Provider Nurse Practitioner Psychiatric/Mental Health | DX: F33.1 Major depressive disorder, recurrent, moderate (principal); I10 Essential (primary) hypertension; E78.5 Hyperlipidemia, unspecified; G47.33 Obstructive sleep apnea (adult) (pediatric); Z99.89 Dependence on other enabling machines and devices | CPT/HCPCS: 90792; 99231; 99232 ==